=== PATIENT | female | born 1955 | race Caucasian/White ===

== ENCOUNTER → 2018-06-11 12:52 | Outpatient (CLI) | payer OTHER, SELFPAY ==
[2018-06-11 14:36] LABS: BUN 18 mg/dL (7-18); Estimated GFR 56.37 (mL/min/1.73m2)
== END ==
PROVIDERS: PCP Student in an Organized Health Care Education/Training Program; Visit Provider Podiatrist
DX: M79.672 Pain in left foot (principal); R22.42 Localized swelling, mass and lump, left lower limb; Z13.29 Encounter for screening for other suspected endocrine disorder
CPT/HCPCS: 36415; 84520; 82565

== ENCOUNTER → 2018-06-12 01:57 | Outpatient (CLI) | payer OTHER, SELFPAY ==
--- NOTE | 2018-06-12 14:51 | DI.REPORT_ITS ---
SYMPTOMS/DIAGNOSIS: PAIN, SWELLING, LEFT FOREFOOT; NEUROMA, 3RD SPACE; PLANTAR PLATE TEAR, 3RD METATARSOPHALANGEAL JOINT MRI OF THE LEFT FOREFOOT: Noncontrast MRI of the left forefoot was performed. The patient refused intravenous contrast material. Marrow signal is within normal limits. No findings to suggest an occult fracture or avascular necrosis are appreciated. No evidence of a soft tissue mass is appreciated. No focal fluid collection is seen. At the 1st metatarsophalangeal joint, there is fluid seen within the joint space. At the articulation between the head of the 1st metatarsal and the sesamoid on the plantar surface, there is subchondral T2 signal and narrowing of the space, consistent with arthritis. No evidence of a tendon tear is seen. IMPRESSION: 1. No evidence of a soft tissue mass. 2. No evidence of an occult fracture or avascular necrosis. 3. Arthritis involving the head of the 1st metatarsal and the adjacent sesamoid.
== END ==
PROVIDERS: PCP Student in an Organized Health Care Education/Training Program; Visit Provider Podiatrist
DX: M79.672 Pain in left foot (principal); R22.42 Localized swelling, mass and lump, left lower limb; M19.072 Primary osteoarthritis, left ankle and foot
CPT/HCPCS: 73718

== ENCOUNTER 2018-08-03 08:02 | Outpatient (CLI) | payer OTHER, SELFPAY ==
[2018-08-03 10:08] LABS: Cholesterol 278 mg/dL (50-200); HDL Cholesterol 54 mg/dL (40-60); LDL CHOLESTEROL 208 mg/dL (<100); Triglyceride 120 mg/dL (30-150)
[2018-08-06 11:36] LABS: Vitamin D 25 Total 54.3 ng/ml (30-100)
== END 2018-08-03 08:22 ==
PROVIDERS: PCP Student in an Organized Health Care Education/Training Program; Visit Provider Student in an Organized Health Care Education/Training Program
DX: E78.5 Hyperlipidemia, unspecified (principal); M85.80 Other specified disorders of bone density and structure, unspecified site; M84.37 Stress fracture, ankle, foot and toes
CPT/HCPCS: 36415; 80061; 82306; 83721

== ENCOUNTER 2018-09-17 11:09 | Outpatient (CLI) | payer OTHER, SELFPAY ==
--- NOTE | 2018-09-17 11:11 | DI.RAD_ITS ---
SYMPTOM/DIAGNOSIS: NEW SHARP RT HIP PAIN, NOT RESPONDING TO CHIRO, M25.559 RIGHT HIP AND AP PELVIS: Three views. No bone or joint abnormality is identified. The soft tissues are unremarkable. IMPRESSION: Negative right hip.
== END 2018-09-17 11:29 ==
PROVIDERS: PCP Student in an Organized Health Care Education/Training Program; Visit Provider Student in an Organized Health Care Education/Training Program
DX: M25.551 Pain in right hip (principal)
CPT/HCPCS: 73502

== ENCOUNTER 2018-10-26 01:15 | Outpatient (CLI) | payer OTHER, SELFPAY | END 2018-10-26 01:35 | PROVIDERS: PCP Student in an Organized Health Care Education/Training Program; Visit Provider Student in an Organized Health Care Education/Training Program | DX: G43.009 Migraine without aura, not intractable, without status migrainosus (principal) | CPT/HCPCS: 94762 ==

== ENCOUNTER 2019-02-13 07:04 | Outpatient (CLI) | payer OTHER, SELFPAY ==
[2019-02-13 08:18] LABS: Cholesterol 303 mg/dL (50-200); HDL Cholesterol 61 mg/dL (40-60); LDL CHOLESTEROL 221 mg/dL (<100); Triglyceride 81 mg/dL (30-150)
== END 2019-02-13 07:24 ==
PROVIDERS: PCP Student in an Organized Health Care Education/Training Program; Visit Provider Student in an Organized Health Care Education/Training Program
DX: E78.5 Hyperlipidemia, unspecified (principal)
CPT/HCPCS: 36415; 80061; 83721

== ENCOUNTER 2019-03-07 00:38 | Outpatient (CLI) | payer OTHER, SELFPAY ==
--- NOTE | 2019-03-07 09:39 | W.PROCNOTE ---
Date of service: 03/07/19 Time of Service: 09:40 Procedure Note Date of procedure: 03/07/19 Procedure: Right Hip Injection with Fluoroscopic Guidance Surgeon/Proceduralist/Physician: Pedro Martinez Procedure Diagnosis: Right Hip Osteoarthritis Procedure Indications: Tamra has had persistent pain of the RIGHT hip and groin. Noninvasive measures have been tried. To serve as both diagnostic and therapeutic, an injection under fluoroscopy was recommended. I had discussed the risks of the procedure and the patient elected to proceed. Procedure Description: Tamra was greeted in the flouroscopy room. The correct side was identified and the consent was reviewed with the patient and signed. The patient was then placed in the supine position on the fluoroscopy table. The RIGHT hip was then prepped with Chloraprep. The anterolateral injection starting point was identiifed by bony landmarks and fluoroscopy. The skin and soft tissue in the tract of the injection was anesthetized with 1% Lidocaine. A spinal needle was then inserted deep into the hip joint at the level of the lateral femoral neck under fluoroscopic guidance. A small amount of Omnipaque solution was injected to confirm intraarticular placement. Once confirmed, the hip was injected with 6cc of 0.5% Bupivicaine and 80mg of Depo-Medrol. A bandaid was placed on the injection site. The patient tolerated the procedure well and noted improvement in pre-injection pain.
--- NOTE | 2019-03-07 10:45 | DI.RAD_ITS ---
SYMPTOMS/DIAGNOSIS: RIGHT HIP OSTEOARTHRITIS FROM DYSPLASIA, M16.31 RIGHT HIP INJECTION: Fluoroscopy Time: 13.9 sec Under fluoroscopic guidance, Dr. Martinez carried out an injection into the right hip. Please see the procedure report for further information.
[2019-03-07] MEDS: Omnipaque 300 MG/ML 10 ML BTL IJ (14:01)
[2019-03-07] MEDS: Bupivacaine 0.5% Pres-Free 10 ML VIAL IJ (14:02)
[2019-03-07] MEDS: methylPREDNISolone ACETATE 80 MG/ML VIAL IM (14:14)
== END 2019-03-07 00:58 ==
PROVIDERS: PCP Student in an Organized Health Care Education/Training Program; Visit Provider Student in an Organized Health Care Education/Training Program
DX: M16.31 Unilateral osteoarthritis resulting from hip dysplasia, right hip (principal); M25.551 Pain in right hip
CPT/HCPCS: 20610; 77002; J1040

== ENCOUNTER 2019-04-10 00:49 | Outpatient (CLI) | payer OTHER, SELFPAY ==
--- NOTE | 2019-04-10 08:34 | DI.MRI_ITS ---
SYMPTOM/DIAGNOSIS: RT HIP PAIN, TROCHANTERIC BURSITIS, HIP DYSPLASIA, M70,M16.31 RIGHT HIP MRI: MR examination of the hip was performed according to the usual protocol. No abnormality is seen involving the internal soft tissue structures of the pelvis. No bony signal abnormality is seen. Hip joints appear well maintained. There is minimally abnormal signal in attachment of gluteus medius and gluteus shahab on the greater trochanter of the right femur. No gross free fluid is seen. No other significant signal abnormality is seen involving the soft tissues of the hip or pelvis. CONCLUSION: Findings consistent with minimal tendinosis/tendinitis of gluteal attachments on the right femur. No fluid collection is seen.
== END 2019-04-10 01:09 ==
PROVIDERS: PCP Student in an Organized Health Care Education/Training Program; Visit Provider Student in an Organized Health Care Education/Training Program
DX: M16.31 Unilateral osteoarthritis resulting from hip dysplasia, right hip (principal); M70.61 Trochanteric bursitis, right hip; M25.551 Pain in right hip
CPT/HCPCS: 73721

== ENCOUNTER 2019-05-29 14:35 | Outpatient (CLI) | payer OTHER, SELFPAY ==
--- NOTE | 2019-05-29 14:34 | DI.RAD_ITS ---
SYMPTOMS/DIAGNOSIS: RIGHT HIP PAIN PELVIS AND RIGHT HIP: Comparison is made with September, images of the SI joints. There is no significant leg length discrepancy. Degenerative changes are seen in the lower lumbar spine. IMPRESSION: Stable mild degenerative changes of both hips.
== END 2019-05-29 14:55 ==
PROVIDERS: PCP Student in an Organized Health Care Education/Training Program; Visit Provider Physician Assistant
DX: M25.551 Pain in right hip (principal)
CPT/HCPCS: 73502

== ENCOUNTER 2019-06-18 15:14 | Outpatient (REF) | payer OTHER, SELFPAY ==
--- NOTE | 2019-06-18 15:00 | SKI_PTH ---
PATIENT: Tamra Plata LOC: [facility] U#:[id number] AGE/SX: 64/F ROOM: RE06/18/[address]: Tee Proctor MD : [id number] BED: DIS: 06/18/2019 SPEC #: [id number] RECD: 06/19/19 12:38 STATUS: BEAR REMedardo #: [id number] SENA: 06/18/19 15:[address]: Tee Proctor DEPT: Surgical Specimen RECD BY: Amira Hilliard ENTERED: 06/19/19 12:40 SP TYPE: TOY WEINSTEIN DR: Alessandra Estevez DO Tissues: 1 - SKIN BIOPSY(SHAVE/PUNCH) Procedures: SKIN LEVEL 4 Comments: [id number]
== END 2019-06-18 15:34 ==
LOC: LBN 15:14
PROVIDERS: PCP Student in an Organized Health Care Education/Training Program; Visit Provider Obstetrics & Gynecology
DX: B07.9 Viral wart, unspecified (principal)
CPT/HCPCS: 88305

== ENCOUNTER 2019-07-09 14:28 | Outpatient (CLI) | payer OTHER, SELFPAY ==
--- NOTE | 2019-07-09 13:24 | HPE_ITS ---
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 Educated patient that if they develop any lesions, redness or skin breakdown to contact office as skin concerns would be a reason to cancel surgery. Patient gives verbal understanding. Educated patient on surgery covering surgical technique via models, recovery process, benefits and risks including but not limited to risk of infection, blood clot, fracture, numbness/tingling, leg length discrepancy, damage to soft tissue/blood vessels/nerves in detail. After discussion patient gives verbal understanding of risks and elects to proceed with scheduling surgery. Patient had opportunity to have questions answered to their satisfaction. They will contact office if issues arise. Patient will co ntinue to be scheduled for right total hip replacement, IT band lengthening, trochanter bursa debridement and possible abductor tendon repair with Dr. Martinez. History of Present Illness Narrative: Ms. Plata is a 64-year-old female who presents to clinic for pre- operative appointment for right posterior SYDNIE, ITB lengthening and abductor tendon repair. She has been seen for complaints of anterior groin and lateral hip pain. She has received injection under fluoroscopy as well as two trochanteric bursa injections. States all injections helped slightly but she continues to have both locations of discomfort that affect daily life. She continues to describe anterior groin pain. Pain continues to be aggravated with prolonged walking, ascending stairs and slightly when moving from a standing position. Reports anterior groin pain is more intermittent than it had been prior to her injection but has been occurring at rest when in a seated position. In addition she continues to have lateral based hip pain which is described as a sharp pain that travels down the length of her right leg to the lateral aspect of her knee. States pain is a constant sensation that is aggravated with direct pressure such as laying on the right side at night and with ascending motions i.e. inclines. She continues to have difficulty at night if she rolls onto her side. She tried two trochanteric bursa injection which provided short-term relief; states last injection in April provided partial relief for a few days. She continues to take ibuprofen as needed - estimates before bed approximately once weekly. Previously had tried PT and she continues to do recommended exercises 3 times weekly. She continues to avoid stairs due to discomfort. Patient denies any recent injuries or falls. She denies any symptoms of numbness or tingling. Pertinent Surgical Information Reports years of PVC and anxiety in 1995. Reports continues to have intermittent palpitations at moments of high stress. States she only saw cardiology one time around 1995 when she was just starting to have a work-up for her symptoms. States she has continued to have anxiety and will occasionally have palpitations that resolve with improved mental state. Denies any chest pain or additional cardiac symptoms. Has concerns regarding post-operative pain management. States following shoulder surgery experienced pain and was unable to tolerate prescription medication. She does have allergy to celebrix (abdominal rash) as well as an adverse reaction to meloxicam (nausea). Denies past medical history of: Hypertension, stroke, cardiac issues, angina, asthma, COPD, sleep apnea, renal issues, liver issues, hepatitis, gastrointestinal ulcers, bleeding disorders, seizures, diabetes, autoimmune disorders, thyroid issues Denies prior complications from surgery or anesthesia. Review of Systems Constitutional Constitutional: Denies fever(s), Denies frequent falls and Denies headache(s) Eyes Eyes: Reports change in vision (reports two migraines with aura recently; Left eye vision change) ENT Ears, Nose, Mouth, and Throat: Denies dizziness, Denies ear discharge, Denies headache(s), Denies epistaxis, Denies nasal discharge and Denies sore throat Cardiovascular Cardiovascular: Denies chest pain, Denies rapid heart rate, Denies irregular heart rhythm, Denies palpitations, Denies dyspnea, Denies dyspnea on exertion, Denies orthopnea, Denies paroxysmal nocturnal dyspnea and Denies slow heart rate Respiratory Respiratory: Denies cough, Denies dyspnea, Denies dyspnea on exertion and Denies wheezing Gastrointestinal Gastrointestinal: Denies abdominal pain, Denies melena, Denies hematochezia, Denies constipation, Denies diarrhea, Denies nausea and Denies vomiting Genitourinary Genitourinary: Denies hematuria, Denies dysuria and Denies urinary urgency Musculoskeletal Musculoskeletal: Reports as per HPI, Denies numbness and Denies tingling Neurologic Neurologic: Denies dizziness, Denies frequent falls, Denies headache(s), Denies numbness and Denies tingling Psychiatric Psychiatric: Reports anxiety and Denies depression Endocrine Endocrine: Denies palpitations Allergic/Immunologic Allergic/Immunologic: Denies wheezing PFSH Family History (Updated 07/09/19 @ 14:59 by Raegan Ruiz RN) Mother Essential hypertension Osteoporosis Atrial fibrillation Hyperlipidemia GERD (gastroesophageal reflux disease) History of postoperative nausea and vomiting Father , Lung CA at age 80. Substance abuse EtOH Essential hypertension Heart disease CABG Hyperlipidemia Neoplasm Lung CA (asbestos exposure) Sister Essential hypertension Mental disorder Depression/anxiety Daughter UC (ulcerative colitis) Social History Smoking/Tobacco Use Status: Never Alcohol Intake: current Alcohol Intake frequency: a few times a month Drug use: Never Substance use type: does not use Adopted: No Household members: spouse and children Housing: house current occupation: [employer] What type of physical activity do you participate in: walking Duration: 15-30 minutes/day Frequency: 3-4 times per week Seatbelt use: always Helmet use: Yes Working smoke detector in home: Yes Fire extinguisher in home: Yes Carbon monox detector in home: Yes Firearms in home: Yes Do you feel safe at home: Yes Victim of physical abuse: No (in the past) Victim of emotional abuse: No (in past) Victim of sexual abuse: No Would you like helpful sources: No (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 ) Meds Home Medications and Allergies Home Medications Medication Instructions Recorded Confirmed Type Driss-6-Mag 1 tab PO DAILY 05/07/13 07/09/19 History fluticasone propionate [Flonase 2 spray NS DAILY 05/02/18 07/09/19 History Allergy Relief] lansoprazole 30 mg capsule,delayed 30 mg PO DAILY PRN cap 08/08/18 07/09/19 History release cetirizine 10 mg tablet 10 mg PO DAILY 09/04/18 07/09/19 History cod liver oil 1 cap PO DAILY 09/04/18 07/09/19 History alprazolam 0.5 mg tablet 0.5 mg PO ONCE PRN #2 tab 04/03/19 07/09/19 Rx estradiol 10 mcg vaginal tablet 10 mcg VG HS TWICE WEEKLY #24 tab 07/08/19 07/09/19 Rx ascorbic acid (vitamin C) [Vitamin 1,000 mg PO DAILY 07/09/19 07/09/19 History C] ibuprofen 600 mg PO PRN PRN 07/09/19 07/09/19 History multivitamin 1 tab PO DAILY 07/09/19 07/09/19 History Allergies Allergy/AdvReac Type Severity Reaction Status Date / Time celecoxib [From Celebrex] Allergy Intermediate rash Verified 07/09/19 13:49 meloxicam AdvReac Intermediate nausea Verified 07/09/19 13:49 tegaderm AdvReac Intermediate Skin Rash Uncoded 07/09/19 14:52 Exam Const General: cooperative and no acute distress [facility] Head: normal to inspection, normocephalic and atraumatic Ears: external ears normal General nose exam: external nose normal and no nasal discharge Face and sinus: face symmetric Mouth: oral mucosae normal, lip normal, tongue normal and moist mucous membranes Teeth and gingiva: dentition normal Throat: posterior oropharynx normal Eyes General: appearance normal, both eyes and all related structures Pupils: PERRL EOM: EOM intact bilaterally Neck Neck: trachea midline Carotids: normal carotid upstroke Lymphatic: no lymphadenopathy noted Resp Effort & Inspection: normal respiratory effort and able to speak in complete sentences Auscultation: clear to auscultation bilaterally, no rales, no rhonchi and no wheezes Cardio Heart Sounds: S1 normal, S2 normal and no murmurs Pulses: radial pulses present bilaterally GI Palpation: soft, no hepatosplenomegaly and nontender Auscultation: normal bowel sounds Skin General skin exam: no rashes or lesions noted
== END 2019-07-09 14:48 ==
PROVIDERS: PCP Student in an Organized Health Care Education/Training Program; Visit Provider Student in an Organized Health Care Education/Training Program
DX: M70.61 Trochanteric bursitis, right hip (principal); M16.31 Unilateral osteoarthritis resulting from hip dysplasia, right hip; Z01.818 Encounter for other preprocedural examination
CPT/HCPCS: NC

== ENCOUNTER 2019-07-09 15:23 | Outpatient (CLI) | payer OTHER, SELFPAY ==
[2019-07-09 16:43] LABS: HCT 40.8 % (36.0-46.0); HGB 13.5 g/dL (12.0-15.5); Mean Corp. HGB Concentration 33.1 g/dL (32.0-36.0); Mean Corpuscular Hemoglobin 29.6 pg (27.0-33.0); Mean Corpuscular Volume 89.5 fL (80-95); Mean Platelet Volume 10.8 fL (8.0-11.0); Platelet Count 315 x1000/uL (130-400); RBC 4.56 m/cumm (4.00-5.20); RBC Distribution Width 12.8 % (11.7-14.6); White Blood Cell Count 6.97 k/cumm (4.4-10.8)
[2019-07-09 16:50] LABS: BUN 12 mg/dL (7-18); CREATININE 0.82 mg/dL (0.55-1.02); Calcium 9.3 mg/dL (8.5-10.1); Chloride 105 mmol/L (98-107); Glucose 93 mg/dL (70-100); Sodium 142 mmol/L (136-145)
== END 2019-07-09 15:43 ==
PROVIDERS: PCP Student in an Organized Health Care Education/Training Program; Visit Provider Student in an Organized Health Care Education/Training Program
DX: M25.551 Pain in right hip (principal); M70.61 Trochanteric bursitis, right hip; M16.31 Unilateral osteoarthritis resulting from hip dysplasia, right hip; Z01.812 Encounter for preprocedural laboratory examination; Z01.818 Encounter for other preprocedural examination
CPT/HCPCS: 36415; 80048; 85027; 86850; 86900; 86901

== ENCOUNTER 2019-07-17 09:55 | Inpatient (IN) | payer OTHER, SELFPAY ==
[2019-07-17] VITALS (9 sets, daily range): BP systolic 99–137; BP diastolic 53–82; PULSE 55–77; RESP 11–18; TEMP 36.3–37.2; O2SAT 98–100
[2019-07-17] MEDS: Lactated Ringers 1,000 ML 80 ML IV ×2 (11:12→19:50)
[2019-07-17] MEDS: Acetaminophen 500 MG TAB 1000 MG PO ×2 (11:12→19:49)
[2019-07-17] MEDS: FAMOTIDINE 20 MG/50 ML BAG 200 MG IVPB (12:27)
[2019-07-17] MEDS: Sodium Citrate 30 ML CUP PO (12:40)
[2019-07-17] MEDS: ceFAZolin 2 GM/50 ML BAG IVPB (12:42)
--- NOTE | 2019-07-17 14:12 | DI.RAD_ITS ---
EXAM: XR PELVIS AP INDICATION: TROCHANTERIC BURSITIS RIGHT HIP. COMPARISON: XR HIP RT COMPLETE AND AP PELVIS from 05/29/2019 TECHNIQUE: 2D digital imaging was performed. FINDINGS: Single intraoperative view of the pelvis was performed. The image shows the patient is undergoing a right total hip replacement. Please refer to the procedure report for complete details. IMPRESSION:
[2019-07-17] MEDS: Bupivacaine 0.25% Pres-Free 30 ML VIAL (14:37)
[2019-07-17] MEDS: Ketorolac 30 MG/ML VIAL (14:37)
[2019-07-17] MEDS: Normal Saline 50 ML (14:37)
--- NOTE | 2019-07-17 16:22 | DI.RAD_ITS ---
EXAM: XR PELVIS AP INDICATION: s/p R SYDNIE. COMPARISON: XR PELVIS AP from 07/17/2019 TECHNIQUE: 2D digital imaging was performed. FINDINGS: Single AP view was obtained and shows right hip prosthesis in position. Mild degenerative changes of the left hip noted. IMPRESSION:
--- NOTE | 2019-07-17 16:57 | DI.VRAD_ITS ---
PROCEDURE INFORMATION: Exam: XR Pelvis Exam date and time: 07/17/2019 4:19 PM Clinical history: 64 years old, female; Condition or disease; Joint replacement status; Right; Patient HX: S/P R jonathan TECHNIQUE: Imaging protocol: XR pelvis. Views: 1 or 2 view. COMPARISON: CR XR PELVIS AP 07/17/2019 2:14 PM FINDINGS: Bones/joints: Right hip arthroplasty with components in normal alignment.. No acute fracture or dislocation. Soft tissues: Unremarkable. IMPRESSION: No acute findings. Dictated and Authenticated by: Dedra Prince MD. Ordering:CATHY Vasquez MD
[2019-07-17] MEDS: ceFAZolin 1 GM/50 ML BAG IVPB (18:31)
[2019-07-17] MEDS: oxyCODONE 5 MG TAB PO (18:32)
[2019-07-17] MEDS: Aspirin E.C. 81 MG TABEC PO (19:49)
[2019-07-17] MEDS: Ketorolac 15 MG/ML VIAL IVP (19:50)
[2019-07-17] MEDS: Normal Saline Flush 10 ML SYR IV (19:50)
[2019-07-18 00:07] VITALS: BP 95/61; PULSE 66; RESP 18; TEMP 37; O2SAT 99
[2019-07-18] MEDS: ceFAZolin 1 GM/50 ML BAG IVPB ×2 (02:48→10:43)
[2019-07-18] MEDS: Ketorolac 15 MG/ML VIAL IVP ×3 (02:49→13:06)
[2019-07-18] MEDS: Normal Saline Flush 10 ML SYR IV ×3 (02:49→13:06)
[2019-07-18 03:00] VITALS: BP 112/60; PULSE 75; RESP 18; TEMP 37; O2SAT 95
[2019-07-18] MEDS: Lactated Ringers 1,000 ML 80 ML IV (05:38)
[2019-07-18 07:05] LABS: HCT 35.4 % (36.0-46.0); HGB 11.8 g/dL (12.0-15.5); Mean Corp. HGB Concentration 33.3 g/dL (32.0-36.0); Mean Corpuscular Hemoglobin 30.1 pg (27.0-33.0); Mean Corpuscular Volume 90.3 fL (80-95); Mean Platelet Volume 10.1 fL (8.0-11.0); Platelet Count 240 x1000/uL (130-400); RBC 3.92 m/cumm (4.00-5.20); RBC Distribution Width 12.7 % (11.7-14.6); White Blood Cell Count 8.22 k/cumm (4.4-10.8)
[2019-07-18 07:15] VITALS: BP 115/75; PULSE 82; RESP 18; TEMP 37.2; O2SAT 98
[2019-07-18 07:29] LABS: Anion Gap 6.4 mmol/L (3-11); BUN 11 mg/dL (7-18); CO2 30.6 mmol/L (21.0-32.0); CREATININE 0.69 mg/dL (0.55-1.02); Calcium 8.3 mg/dL (8.5-10.1); Chloride 106 mmol/L (98-107); Glucose 109 mg/dL (70-100); Potassium 3.7 mmol/L (3.5-5.1); Sodium 143 mmol/L (136-145)
[2019-07-18] MEDS: Fluticasone NASAL SPRAY 16 GM BTL NS (09:06)
[2019-07-18] MEDS: Multivitamin TAB 1 TAB PO (09:07)
[2019-07-18] MEDS: Cetirizine 10 MG TAB PO (09:07)
[2019-07-18] MEDS: Lansoprazole 30 MG CAPCR PO (09:07)
[2019-07-18] MEDS: Dexamethasone 4 MG TAB PO (09:07)
[2019-07-18] MEDS: Ascorbic Acid 500 MG TAB 1000 MG PO (09:07)
[2019-07-18] MEDS: Acetaminophen 500 MG TAB 1000 MG PO ×2 (09:08→13:05)
[2019-07-18] MEDS: Aspirin E.C. 81 MG TABEC PO (09:08)
--- NOTE | 2019-07-18 11:13 | IN_ITS ---
Date of service: 07/18/19 Time of Service: 09:10 PT Notes Inpatient Physical Therapy Evaluation Date: 07/18/2019 Referring Doctor: Pedro Martinez, patient will highly benefit from use of straight cane in order to increase mobility, increase stability, maximize activity tolerance, and reduce overall fall risk at discharge destination. T PT Orders: PT CONSULT: S/P R SYDNIE and IT Band Lengthening Precautions: Fall. Standard. Patient Profile/Admitting Diagnosis: Patient is a 64-year-old female trochanteric bursitis of right hip and osteoarthritis resulting from right hip dysplasia s/p R posterior approach SYDNIE, trochanteric bursa debridement, and iliotibial band lengthening on postoperative day 1. PMHX: Osteopenia GERD Hyperlipidemia Anxiety and depression Migraine headache Cervical radiculitis Agoraphobia with panic attacks Social History/Home Situation: Patient lives in a one-story home that has four steps to enter. She lives with her and grown children. 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 Equipment Owned/DME: none. Subjective: Patient reports mild discomfort (4/10) and says she is ready to be up and moving because she needs to use the restroom. She is agreeable to PT, and complains of dizziness only during the transition to sitting. She does have some mild numbness and tingling in her R foot. Objective: General Observation: Patient is seen laying supine with HOB elevated with bilateral LEIA stockings and antithromboembolic devices. She has an IV in the R UE that is disconnected. Mental Status: Alert and oriented x 4 as to person, place, time, and purpose Pain: 4/10 ROM: Right Lower Extremity: Hip flexion tested up to 90 degrees due to hip precautions. Hip abduction WFL. Knee flexion WFL. Knee extension -15 degrees. Ankle dorsiflexion allows up to 10 degrees during gait activity. Ankle plantarflexion allows about 10 degrees during walking. Left Lower Extremity: Hip flexion WFL. Hip abduction WFL. Knee flexion WFL. Ankle dorsiflexion WFL. Ankle plantarflexion WFL. Strength: Right Lower Extremity: Hip flexors 3-/5. Hip abductors 5/5. Knee flexors 5/5. Knee extensors 3-/5. Ankle dorsiflexors 3-/5. Ankle plantarflexors 3-/5. Left Lower Extremity:Hip flexors 4/5. Hip abductors 5/5. Knee flexors 5/5. Knee extensors 5/5. Ankle dorsiflexors 5/5. Ankle plantarflexors 5/5. Bed Mobility/Transfers: Rolling I Supine to sit I Sit to supine I Sit to stand Supervision Stand to sit Supervision Bed to chair Supervision Chair to bed Supervision Gait: Patient ambulated 15? to restroom with CGA and FWW. She then ambulated 12? to commode with CGA and FWW. Patient was then able to ambulate using reciprocal gait with FWW and supervision for 50? with wheelchair follow. She ascended and descended three 4-inch steps, and two 6-inch steps with supervision and bilateral rail support, twice using step-to pattern. She then ambulated 50? back to her room with FWW and supervision. Balance: Static Sitting: Normal Dynamic Sitting: Normal Static Standing: Fair Dynamic Standing: Fair Special Tests: Mobility Limitations Standardized Measure [facility] AM-PAC 6 clicks Basic Mobility Inpatient Short Form: Raw Score: 21 CMS Score: 33% Informed Consent/Education: Patient instructed in purpose of PT consult and plan of care. Assessment: Patient is a 64-year-old female s/p R SYDNIE, Ilitiobial band lengthening and bursectomy. Once out of bed, her function progressed exponentially and she is able to ambulate with solely supervision. Her pain is well managed and she is a relatively active individual who is motivated to get back to work in six weeks. She lives with her and grown children in a one story home and she feels confident she will be able to get around her home. Her prognosis is good. Patient presents with clinical signs and symptoms consistent with current/admitting diagnoses that have resulted to mobility limitations, gait instability, generalized weakness, and impairment of motor control as demonstrated by the following impairment level findings: 1. Decreased strength to R LE major muscle groups 2. Impaired sitting/standing balance 3. Impaired activity tolerance 4. Limitation of joint range of motion in hip flexion (due to precautions), and knee extension. Impairments are contributing to the following functional limitations: 1. Inability to safely ambulate without assistive device and physical assistance 2. Increase completion time for mobility ADL performance 3. Increased fall risk 4. Inability to negotiate steps alone safely Patient is assessed as a 98029 moderate complexity based on the following: History: Patient is a 64-year-old female trochanteric bursitis of right hip and osteoarthritis resulting from right hip dysplasia s/p R posterior approach SYDNIE, trochanteric bursa debridement, and iliotibial band lengthening on postoperative day 1. Examination: Demonstrable impairment in strength, balance, and range of motion with underlying impairments and functional limitations as documented above Presentation: Evolving Decision Makin Moderate complexity Goals: Goals X1 week 1. Bed-Chair independent 2. Chair-Bed independent 3. Independent gait on level surface with use of least restrictive device for at least 300 feet without report of pain nor dyspnea 4. Independent stair negotiation while holding onto bilateral rails for at least 10 steps without report of pain nor dyspnea 5. Independent with home exercise program 6.. Good static and dynamic standing balance/tolerance Plan of Care/Treatment Plan: 1-2x/day, 7 days/week x 1 week. Plan of care has been reviewed with the FUNERAL HOME MANAGER providing the service under Physical Therapy direction. Initiate Physical Therapy intervention for strengthening, bed mobility, transfers, gait, stairs, balance training, use of assistive device. DISCHARGE RECOMMENDATIONS: Patient is to be discharged to home after all of the above goals are met and she is medically stable. May benefit from skilled physical therapy services according to orthopedic surgeon's timeline recommendations. Patient will be educated and trained on home exercise program per TKA exercise protocol in preparation for outpatient physical therapy services. TREATMENT CODE/TIME: 29182 x 20 minutes, [id number] x 15 minutes beginning at 9:10 PM. Thank you very much for this referral. Tay Frank [facility] With supervision of: Desire Dooley PT, DPT, CLT [facility], [facility]
--- NOTE | 2019-07-18 11:29 | INITIAL_ITS ---
Care Management Initial Assess REASON FOR HOSPITALIZATION:: trochanteric bursitis R hip and OA resulting from R hip dysplasia, now s/p R SYDNIE and ITB lengthening and abductor tendon repair. PAST MEDICAL HISTORY/PAST SURGICAL HISTORY:: Medical: anxiety/depression, heart palpitations when under stress, osteopenia, GERD, hyperlipidemia, migraine headache, cervical radiculitis, agorophobia with panic attacks. Surgical: none PREVIOUS FUNCTIONAL STATUS/SOCIAL/FAMILY SUPPORTS:: Tamra is 64 yo woman who lives with her Fan and children in their home in [place]. 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 She is usually active and independent. CURRENT FUNCTIONAL STATUS:: She is sitting up in chair when CM enters. Easily engages in discussion re plans. Looks forward to d/c later today. ADVANCE DIRECTIVES:: Document on file at [facility]. Christina Chavira is agent and Jose and Anjali are alternates. Has patient been provided with information about the portal?: Yes Did the patient sign up for the portal?: No (already done) CODE STATUS:: Full Code INSURANCE COVERAGE / FINANCIAL ISSUES:: [employer] CURRENT HOME/COMMUNITY SERVICES/EQUIPMENT:: No current services. Has access to shower chair, grab bars and raised toilet seat for home use. PRIMARY CARE PHYSICIAN:: Alessandra Sinclair MD POTENTIAL DISCHARGE NEEDS:: Needs walker for home use. Discussion re DME options and she requested [facility], so walker was issued from Jean to her. Will need follow-up with Dr Martinez as directed. She pland to discuss OP PT with him at 2 week visit, and anticipates going to OP PT with Leonid Thomas. PATIENT/FAMILY EDUCATION NEEDS:: review d/c instructions re meds and activity levels. Discuss Ask me Now ANTICIPATED BARRIERS TO DISCHARGE:: none identified TRANSPORTATION:: via car with or other family member. PLAN:: d/c home as per . Will follow-up with Dr Martinez as directed, and further discuss OP PT with him.
[2019-07-18 13:05] VITALS: TEMP 38
--- NOTE | 2019-07-18 13:12 | DSE_ITS ---
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 It was tolerated well without any notable medical, surgical, or anesthetic complications. Mobilization began postoperatively. The light catheter was removed and voiding spontaneously. Vitals were stable. Physical therapy worked with the patient and was cleared for discharge home. No acute medical issues. Home Meds and New Rx's Prescriptions: New aspirin 81 mg tablet,delayed release (DR/EC) 81 mg PO BID Qty: 60 RF: 0 acetaminophen 500 mg tablet 1,000 mg PO Q8H PRN (Reason: pain) Qty: 90 RF: 3 ibuprofen 600 mg tablet 600 mg PO TID PRNQty: 90 RF: 3 oxycodone 5 mg tablet 5 mg PO Q4H Qty: 18 RF: 0 Narcan 4 mg/actuation spray,non-aerosol 4 mg KO Q2M PRN (Reason: opioid overdose) Qty: 2 RF: 0 Continued cod liver oil capsule 1 cap PO DAILY RF: 0 cetirizine [Zyrtec] 10 mg tablet 10 mg PO DAILY RF: 0 multivitamin Tablet 1 tab PO DAILY RF: 0 ramon-6-mag tablet 1 tab PO DAILY RF: 0 fluticasone propionate [Flonase Allergy Relief] 9.9 ML spray,suspension 2 spray NS DAILY RF: 0 estradiol [Vagifem] 10 mcg tablet 10 mcg VG HS TWICE WEEKLY Qty: 24 RF: 4 ascorbic acid (vitamin C) [Vitamin C] 1,000 mg Tablet Extended Release 1,000 mg PO DAILY RF: 0 alprazolam [Xanax] 0.5 mg tablet 0.5 mg PO ONCE PRN (Reason: claustrophobia) RF: 0 lansoprazole [Prevacid] 30 mg capsule,delayed release(DR/EC) 30 mg PO DAILY PRN (Reason: dypepsia) RF: 0 Discontinued ibuprofen 600 mg Tablet 600 mg PO PRN PRNRF: 0 Discharge Instructions Additional Instructions: Dr. Martinez?s Total Hip Discharge Instructions Activity: The most important activity is to walk. You should try to take short walks a few times a day. You have no restrictions on movement or positioning, but you should keep your knees wider than your hips and keep a pillow between your knees at night. You will find some stiffness and weakness with hip flexion (lifting your knee). Do not try to strengthen this too early, continue to practice walking and stairs and this will come. - Outpatient physical therapy can be helpful to help return you to a normal gait and improve your flexibility and strength. This can start around 2 weeks. For some patients, it?s not necessary. - You should wear the LEIA hose on both legs for 2 weeks. Dressing: Keep the surgical dressing in place for at least one week. After the first week it may be removed and replace with light gauze and tape or nothing. It may get wet after 3 days but avoid soaking the dressing. If it gets wet, just lightly pat dry. Medications: - You should take Tylenol and an anti-inflammatory Ibuprofen as your primary pain control medications - You have been prescribed a stronger pain medication Oxycodone for breakthrough pain, take as needed as prescribed. - You will be taking Aspirin 81mg twice a day for DVT prevention unless instructed otherwise. - If you have constipation you should take Colace or Miralax (both [id number] ter). It takes most people 3-4 days to have a bowel movement. Follow-up: 2 weeks Referrals: Pedro Martinez MD [ [facility] STAFF PHYSICIAN] - Activity:: Activity as Tolerated Equipment/Supplies:: Walker Diet:: As Tolerated Discharge Orders Discharge Orders: Discharge Order (Routine); Ordered 07/18/19 Ordered By: Pedro Martinez DS: Summary Status at Discharge Functional status at discharge: independent ambulation Overall status at discharge: patient is progressing back to baseline Mental Status: mental status grossly normal Speech and Movement: speech and movement normal Mood: congruent mood Affect: normal affect Exam Psych Mental Status: mental status grossly normal Speech and Movement: speech and movement normal Mood: congruent mood Affect: normal affect DS: Data Vitals/I&O Vitals and I&O: Vital Signs Temperature 38 C H 07/18/19 13:05 Temperature Source Tympanic 07/18/19 07:15 Pulse 82 07/18/19 07:15 Pulse Rhythm Regular 07/18/19 02:50 Respiratory Rate 18 07/18/19 07:15 Respiratory Effort 07/18/19 02:50 Respiratory Depth Normal 07/18/19 02:50 Respiratory Pattern Normal 07/18/19 02:50 Blood Pressure 115/75 07/18/19 07:15 Pulse Oximetry 98 07/18/19 07:15 Oxygen Delivery Method Room Air 07/18/19 07:15 Oxygen Flow Rate 0 07/18/19 07:15 Pain Level 0 07/18/19 13:06 Intake & Output 07/17/19 07/18/19 07/18/19 23:59 11:59 23:59 Intake Total 1240 / 1240 854 / 854 Output Total 1900 / 1900 1550 / 1550 Balance -660 / -660 -696 / -696 Intake: IV 1240 / 1240 854 / 854 Output: Urine 1300 / 1300 1550 / 1550 Estimated Blood Loss 600 / 600 Other: Urine Color Yellow Yellow Urine Appearance Clear Clear Urine Odor None Comment SLIGHT BURNING WITH URINATION, KASSANDRA CARCAMO DC'D Emesis Description None Voiding Methods Bedside Commode Data Completed and Pending Labs on day of discharge: Labs from last 24 hours 07/18/19 07/18/19 06:48 06:48 WBC 8.22 RBC 3.92 L Hgb 11.8 L Hct 35.4 L MCV 90.3 MCH 30.1 MCHC 33.3 RDW 12.7 Plt Count 240 MPV 10.1 Sodium 143 Potassium 3.7 Chloride 106 Carbon Dioxide 30.6 Anion Gap 6.4 BUN 11 Creatinine 0.69 Estimated GFR/1.73 m2 >= 60.00 Glucose 109 H Calcium 8.3 L PFSH Family History (Updated 07/09/19 @ 14:59 by Raegan Ruiz RN) Mother Essential hypertension Osteoporosis Atrial fibrillation Hyperlipidemia GERD (gastroesophageal reflux disease) History of postoperative nausea and vomiting Father , Lung CA at age 80. Substance abuse EtOH Essential hypertension Heart disease CABG Hyperlipidemia Neoplasm Lung CA (asbestos exposure) Sister Essential hypertension Mental disorder Depression/anxiety Daughter UC (ulcerative colitis) Social History Smoking/Tobacco Use Status: Never Alcohol Intake: current Alcohol Intake frequency: a few times a month Drug use: Never Substance use type: does not use Adopted: No Household members: spouse and children Housing: house current occupation: [employer] What type of physical activity do you participate in: walking Duration: 15-30 minutes/day Frequency: 3-4 times per week Seatbelt use: always Helmet use: Yes Working smoke detector in home: Yes Fire extinguisher in home: Yes Carbon monox detector in home: Yes Firearms in home: Yes Do you feel safe at home: Yes Victim of physical abuse: No (in the past) Victim of emotional abuse: No (in past) Victim of sexual abuse: No Would you like helpful sources: No (she has seen well logging operator mud analysis in the past )
--- NOTE | 2019-07-18 14:07 | ROE_ITS ---
JULY 17, 2019 PREOPERATIVE DIAGNOSIS: Right hip arthritis, right recalcitrant trochanteric bursitis, right abduct or tendinitis. POSTOPERATIVE DIAGNOSIS: Same. OPERATION: Right posterior hip replacement, right complete trochanteric bursectomy with iliotibial band lengthening. MANUFACTURING TECH: Enid Lopez PA-C ANESTHESIA: Spinal ESTIMATED BLOOD LOSS: 600 cc. FINDINGS: There was a area on the superior femoral head with complete loss of cartilage. This corre sponded to the edge of the acetabulum. The abductors did not have any tearing that was appreciated, however, there was notable tendinitis as seen by thinning of the tendons as they reached the trochant er. There was no tendon edge to repair. There was a thickened bursa which was resected in whole. T oanh iliotibial band was lengthened in a Z-lengthening type procedure. PROCEDURE: Tamra was greeted in the preoperative holding area. Identity was confirmed with the c orrect side identified and marked. The consent was reviewed with the patient and signed. History an d physical exam was updated. Tamra was taken back to the Operating Room. A spinal anesthetic was administered. After successfu l administration of the spinal she was then given some light sedation and positioned onto the left la teral decubitus position. All bony prominences were well padded. An axillary roll was placed under neath the left axilla. The down leg, left leg, was padded with a pillow underneath as well as a pill ow between the two knees. She was secured to the table using posts to keep her in the side lying pos ition. We ensured that her pelvis was level. The left leg was then prepped with ChloraPrep and draped in a standard fashion. Once the drapes were on a second prep with ChloraPrep was performed followed by an Iodine impregnated skin drape. Prophylactic antibiotics in the form Cefazolin were given. A gram of Tranexamic acid administered pr ior to incision. A time out was performed for safe surgery. A 12 cm. incision overlying the tip of the greater trochanter and extending towards the posterior papo ac spine was performed. This was taken up to the level of the skin. There was a significant amount of loose fat in this area. This was dissected down to the level of the greater trochanter and the il iotibial band. These tissues were then elevated off of the iliotibial band and the gluteus fascia to expose the anatomy. The iliotibial band and the gluteus fascia was then incised with a knife and ex tended with a Mora scissor in either direction. This exposed the trochanteric bursa which had signif icant signs of inflammatory disease. A Charnley retractor was placed deep underneath the fascial lay er and the bursa was resected in whole. This was done with a rongeur and a Bovie. Once the bursa wa s removed the abductor tendons were inspected and they did show some thinning at their insertion to t he tuberosity. The lining of the tendons was inspected fully and did not show any signs of complete defect nor was there a stump of tendon appreciated. After this debridement was performed we then pr oceeded with the hip replacement. A release of the short external rotator was performed off the posterior aspect of the greater trochan ter and curved anteriorly, resecting off the conjoined tendon and the piriformis tendon but protectin g the gluteus minimus tendon, elevating it off the capsule. The capsule was incised down to the leve l of the labrum and acetabulum. Once this was performed the leg was then brought into some flexion a nd internal rotation and the hip was dislocated. Excess capsule was removed from the proximal aspect of the hip. A neck cut was drawn on the neck in line with what we had templated. Using an oscilla ting saw this was performed without difficulty and the had was removed. The head was measured, a siz e 44 millimeter. We then turned to the acetabulum. Retractors were placed over the anterior and posterior pichardo and t he labrum was resected. There was a large amount of labrum seen anteriorly and superiorly. The cont ents of the cotyloid fossa were resected with Bovie electrocautery. Starting with a 45 millimeter re amer I then reamed it to a 49 millimeter reamer focusing to get down to the true floor. There was no alma delia to be significant under coverage of the acetabular component. It seemed to fit well with her nor mal anatomy, in respect to both anteversion and abduction. The cup was then impacted into place. It was noted to be contacting quite well superiorly but there was a slight space on the deep central po rtion of the cup, maybe 1 millimeter. However, the cup was extremely stable and this was left in mauro ce. A 52 millimeter Depuy Sopchoppy cup was inserted. This was then followed by the 50 x 32 millimeter li ner. A portion of the periarticular cocktail was injected around the acetabulum. This cocktail cons isted of 20 cc. of Exparel, 50 cc. of 0.25% Bupivacaine, 30 mg. of Ketorolac and 50 cc. of normal s nikky for expansion. We then turned attention to the femur. The femur was brought out of the wound and the lateral neck r emnant was removed. A box osteotome was utilized to start the femoral broaching, aiming for 20 degr ees of anteversion. Broaching was worked lateral and succeeded up to a size 11. I did sink this bel ow by neck cut level, expecting that I was somewhat long based on the distance from the tip of the gr eater trochanter. This was planed down and noted to have good stability with the broach handle. A s tandard neck with a +1.0 head was then inserted. This was able to be reduced. The leg lengths appea red to be equal. However, these seemed to be just a slight amount of instability with going into fle xion and adduction. At about 30 degrees of internal rotation with the knee flexed and adducted past the midline the hip would dislocate superiorly. It was seeming that it was escaping superiorly and t herefore an intraoperative x-ray was performed. The x-ray showed that the acetabular component was vertical although it matched her normal anatomy. The femoral component was in a good position. Therefore, I removed the femoral component and used a bone tamp to increase the abduction of the acet abular component. The component was well fixed and took some effort to move it into the abduction. It was then re-impacted back into the acetabulum. The hip was then re-trialed with a size 11 +5. This seemed to give adequate tension and the hip was extremely stable up to 60 degrees of internal rotation with flexion and adduction. The trial femur was removed. A Karyze size 11 stem was then impacted into place. At the end of the impaction it was noted that there was a very small crack seen over the posterior calcar. It was only in one location and was non-displaceable. I was unable to open it with a freer. The implant was co mpletely in place and with a collar. Given this contained fracture I did not place any cerclage cabl es. The hip was then reduced. The deeper tissues were injected with another portion of the periarticular cocktail. The abductor tendons were once again inspected to make sure that there were no signs of t earing while we were here. I did not see any tendon to be repaired. Therefore we proceeded with the posterior capsule repair. Three drill holes were made over the back of the greater trochanter. Sutures placed within the piriformis and conjoined tendons and posterior capsule were then passed through the holes and tied over the greater trochanter, reapproximating the capsule quite nicely to the posterior aspect of the trochanter. A single stitch was placed into the split of the capsule up onto the neck. The Charnley retractor was removed. The iliotibial band was reapproximated with a single stitch. On ce we regained our orientation a Z-lengthening was performed at the level of the vastus ridge. This added approximately 2 cm. of length to the IT band. The iliotibial band was then closed with a #1 Vi cryl. The gluteus fascia was closed with the same. Prior to closing the IT band and gluteus fascia I did irrigate the wound thoroughly with normal salin e followed by Irrisept. The Irrisept was allowed to sit for three minutes. After the iliotibial ban d was closed I did the same in the soft tissue and fat with the Irrisept as well to prevent infection . The deep tissues were then closed with #0 Vicryl followed by #2-0 Vicryl. The skin was closed wit h a running #3-0 Monocryl. Skin glue was applied over the wound and a Mepilex silver dressing was th en applied. She was then placed in an abductor pillow and transitioned over to the hospital bed without any notab le difficulties. There were no noted complications. She was transferred to [facility] in stable condition.
--- NOTE | 2019-07-18 14:39 | PT.INDS ---
Date of service: 07/18/19 Time of Service: 14:42 PT Notes PT Inpatient Discharge Summary Date: 07/18/2019 Dates of Service: 07/18/2019 only Referring Doctor: Pedro Martinez MD PT Orders: PT CONSULT: S/P R SYDNIE and IT Band Lengthening Precautions: Fall. Standard. Patient Profile/Admitting Diagnosis: Patient is a 64-year-old female trochanteric bursitis of right hip and osteoarthritis resulting from right hip dysplasia s/p R posterior approach SYDNIE, trochanteric bursa debridement, and iliotibial band lengthening on postoperative day 1. PMHX: Osteopenia GERD Hyperlipidemia Anxiety and depression Migraine headache Cervical radiculitis Agoraphobia with panic attacks Social History/Home Situation: Patient lives in a one-story home that has four steps to enter. She lives with her and grown children. 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 Equipment Owned/DME: none. Subjective: Patient reports an episode of lightheadedness early this afternoon which required resting in bed for an hour. Patient was seen an hour later and states that she is feeling a lot better and is ready to go for another walk. When asked if she has questions regarding home exercises she states that she is okay and has reviewed the packet provided to her. Objective: General Observation: Patient is seen laying supine with HOB elevated with bilateral LEIA stockings and antithromboembolic devices. She has an IV in the R UE that is disconnected. Mental Status: Alert and oriented x 4 as to person, place, time, and purpose Pain: 4/10 ROM: Right Lower Extremity: Hip flexion tested up to 90 degrees due to hip precautions. Hip abduction WFL. Knee flexion WFL. Knee extension -15 degrees. Ankle dorsiflexion allows up to 10 degrees during gait activity. Ankle plantarflexion allows about 10 degrees during walking. Left Lower Extremity: Hip flexion WFL. Hip abduction WFL. Knee flexion WFL. Ankle dorsiflexion WFL. Ankle plantarflexion WFL. Strength: Right Lower Extremity: Hip flexors 3-/5. Hip abductors 5/5. Knee flexors 5/5. Knee extensors 3-/5. Ankle dorsiflexors 3-/5. Ankle plantarflexors 3-/5. Left Lower Extremity:Hip flexors 4/5. Hip abductors 5/5. Knee flexors 5/5. Knee extensors 5/5. Ankle dorsiflexors 5/5. Ankle plantarflexors 5/5. Bed Mobility/Transfers: Rolling independent Supine to sit independent Sit to supine independent Sit to stand independent Stand to sit independent Bed to chair independent Chair to bed independent Gait: Patient ambulated 150? with supervision and FWW using reciprocal gait with FWW with complaints of mild ache on the surgery site that subsided with rest. Balance: Static Sitting: Normal Dynamic Sitting: Normal Static Standing: Fair Dynamic Standing: Fair Assessment: Patient is a 64-year-old female s/p R SYDNIE, Ilitiobial band lengthening and bursectomy. Once out of bed, her function progressed exponentially and she is able to ambulate with solely supervision. Her pain is well managed and she is a relatively active individual who is motivated to get back to work in six weeks. She lives with her and grown children in a one story home and she feels confident she will be able to get around her home. Her prognosis is good. Patient continues to present with clinical signs and symptoms consistent with current/admitting diagnoses that have resulted to mobility limitations, gait instability, generalized weakness, and impairment of motor control as demonstrated by the following impairment level findings: 1. Decreased strength to R LE major muscle groups 2. Impaired sitting/standing balance 3. Impaired activity tolerance 4. Limitation of joint range of motion in hip flexion (due to precautions), and knee extension. Impairments are contributing to the following functional limitations: 1. Inability to safely ambulate without assistive device and physical assistance 2. Increase completion time for mobility ADL performance 3. Increased fall risk 4. Inability to negotiate steps alone safely Goals: Goals X1 week 1. Bed-Chair independent MET 2. Chair-Bed independent MET 3. Independent gait on level surface with use of least restrictive device for at least 300 feet without report of pain nor dyspnea NOT MET 4. Independent stair negotiation while holding onto bilateral rails for at least 10 steps without report of pain nor dyspnea NOT MET 5. Independent with home exercise program NOT MET 6.. Good static and dynamic standing balance/tolerance NOT MET DISCHARGE RECOMMENDATIONS: Patient is to be discharged to home after all of the above goals are met and she is medically stable. May benefit from skilled physical therapy services according to orthopedic surgeon's timeline recommendations. Patient will be educated and trained on home exercise program per TKA exercise protocol in preparation for outpatient physical therapy services. TREATMENT CODE/TIME: 10484 x 22 minutes beginning at 14:38 PM. Thank you very much for this referral. Desire Dooley PT, DPT, CLT [facility]
--- NOTE | 2019-07-18 15:32 | CHAPLAIN ---
Tamra is an [employer] employee and expects to go home today or tomorrow following knee surgery. 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
--- NOTE | 2019-07-18 15:34 | PDOC.CMDIS ---
LACE Index Scoring Tool - Questions: Length of Stay (in days): 2 Acuity (Admit via E.D.?): No E.D. Visits: 0 - Answers: Total Score: 2 Risk of Readmission: Low Risk Care Management Discharge Reason for Hospitalization: trochanteric bursitis R hip and OA resulting from R hip dysplasia, now s/p R SYDNIE and ITB lengthening and abductor tendon repair. Discharge Plan: home with plan for OP PT with [facility] Patient/Family Education Needs: RN to review d/c instructions re meds and activity levels. Patient able to verbalize reason for hospitalization and how to manage care at home. Services Needed at Discharge: Physical Therapy
[2019-07-18 15:51] VITALS: BP 128/86; PULSE 90; RESP 22; TEMP 37.2; O2SAT 96
== END 2019-07-18 16:36 | disposition home or self-care (01) | DRG 470 ==
LOC: PDS 09:55 → MS 17:54
PROVIDERS: Admitting Provider Student in an Organized Health Care Education/Training Program; PCP Student in an Organized Health Care Education/Training Program; Visit Provider Student in an Organized Health Care Education/Training Program
PROC: 0SR904A Replacement of Right Hip Joint with Ceramic on Polyethylene Synthetic Substitute, Uncemented, Open Approach (ICD-10-PCS; CPT 27130; principal; 2019-07-17 12:30)
DX: M16.31 Unilateral osteoarthritis resulting from hip dysplasia, right hip (principal); T84.010A Broken internal right hip prosthesis, initial encounter; M70.61 Trochanteric bursitis, right hip; Y83.1 Surgical operation with implant of artificial internal device as the cause of abnormal reaction of the patient, or of later complication, without mention of misadventure at the time of the procedure; K21.9 Gastro-esophageal reflux disease without esophagitis; F41.8 Other specified anxiety disorders; E78.5 Hyperlipidemia, unspecified
CPT/HCPCS: 27130; 27062; 27305; 36415; 80048; 85027; NC; 72170; J0690; J1885; J2250; J2405; J8540; L1686

== ENCOUNTER 2019-08-01 11:43 | Outpatient (CLI) | payer OTHER, SELFPAY ==
--- NOTE | 2019-08-01 11:06 | DI.RAD_ITS ---
EXAM: XR HIP RT COMPLETE AP PELVIS INDICATION: first post-op visit s/p SYDNIE. COMPARISON: XR PELVIS AP from 07/17/2019 TECHNIQUE: 2D digital imaging was performed. FINDINGS: There has been no change in the alignment of the right hip prosthesis. No abnormal bony lucencies a re seen. There is mild acetabular spurring of the left hip. IMPRESSION: Stable appearance of right SYDNIE.
== END 2019-08-01 12:03 ==
PROVIDERS: PCP Student in an Organized Health Care Education/Training Program; Visit Provider Physician Assistant
DX: Z96.641 Presence of right artificial hip joint (principal); Z47.1 Aftercare following joint replacement surgery
CPT/HCPCS: 73502

== ENCOUNTER 2019-12-31 12:21 | Outpatient (REF) | payer OTHER, SELFPAY ==
--- NOTE | 2019-12-31 10:40 | PAPFT_PTH ---
PATIENT: Tamra Plata LOC: [facility] U#:[id number] AGE/SX: 64/F ROOM: RE12/31/[address]: VIRIDIANA Carrion : 1955 BED: DIS: 12/31/2019 SPEC #: [id number] RECD: 12/31/19 18:31 STATUS: BEAR REQ #: [id number] SENA: 12/31/19 10:[address]: Camila Robledo DEPT: [facility] Cytology RECD BY: Amira Hilliard ENTERED: 12/31/19 18:31 SP TYPE: PAPFT OTHR DR: Alessandra Estevez, Tissues: 1 - CX/ENDOCX FOR PAP SMEARS Procedures: PAP THIN PREP/[facility] Screening HPV DNA PROBE Comments: [id number]
== END 2019-12-31 12:41 ==
LOC: LBN 12:21
PROVIDERS: PCP Student in an Organized Health Care Education/Training Program; Visit Provider Nurse Practitioner Family
DX: Z12.4 Encounter for screening for malignant neoplasm of cervix (principal); Z11.51 Encounter for screening for human papillomavirus (HPV)
CPT/HCPCS: 88142; 87624

== ENCOUNTER 2020-01-20 09:20 | Outpatient (REF) | payer OTHER, SELFPAY | END 2020-01-20 09:40 | LOC: LBN 09:20 | PROVIDERS: PCP Student in an Organized Health Care Education/Training Program; Visit Provider Nurse Practitioner Family | DX: R30.0 Dysuria (principal) | CPT/HCPCS: 87086 ==

== ENCOUNTER 2020-03-12 02:07 | Outpatient (CLI) | payer OTHER, SELFPAY ==
--- NOTE | 2020-03-12 06:15 | DI.MAMMO_ITS ---
EXAM: MAMMO SCREENING CLINICAL HISTORY: screening,Z12.39 TECHNIQUE: Mammograms were interpreted according to the usual protocol including computer analysis w [employer] CAD system, tomosynthesis and C-view imaging. COMPARISON: 2009 through 2018. FINDINGS: The breasts are composed of mainly fatty density , Breast Density category A. No suspicious masses or suspicious microcalcifications are seen. No skin thickening or abnormal axillary lymph nodes are seen. There has been no significant change from prior exams. IMPRESSION: BI-RADS category 1, negative. Yearly screening mammography is recommended. Breast Density - Category A - Almost entirely fatty
== END 2020-03-12 02:27 ==
PROVIDERS: PCP Student in an Organized Health Care Education/Training Program; Visit Provider Nurse Practitioner Family
DX: Z12.31 Encounter for screening mammogram for malignant neoplasm of breast (principal)
CPT/HCPCS: 77063; 77067

== ENCOUNTER 2020-04-27 01:44 | Outpatient (CLI) | payer OTHER, SELFPAY ==
[2020-04-27 07:22] LABS: HCT 42.6 % (36.0-46.0); HGB 14.2 g/dL (12.0-15.5); Mean Corp. HGB Concentration 33.3 g/dL (32.0-36.0); Mean Corpuscular Hemoglobin 29.6 pg (27.0-33.0); Mean Corpuscular Volume 88.9 fL (80-95); Mean Platelet Volume 10.5 fL (8.0-11.0); Platelet Count 299 x1000/uL (130-400); RBC 4.79 m/cumm (4.00-5.20); RBC Distribution Width 13.6 % (11.7-14.6)
[2020-04-27 08:19] LABS: ALT 25 U/L (14-59); AST 19 U/L (15-37); Albumin 3.9 g/dL (3.4-5.0); Alkaline Phosphatase 66 U/L (46-116); Anion Gap 10.6 mmol/L (3-11); BUN 19 mg/dL (7-18); Bilirubin, Total 0.8 mg/dL (0.2-1.0); CO2 27.4 mmol/L (21.0-32.0); CREATININE 0.87 mg/dL (0.55-1.02); Calcium 9.2 mg/dL (8.5-10.1); Calculated LDL 156 mg/dL (<100); Chloride 105 mmol/L (98-107); Cholesterol 238 mg/dL (<200); Glucose 104 mg/dL (74-106); HDL Cholesterol 53 mg/dL (40-60); Magnesium 2.1 mg/dL (1.8-2.4); Potassium 3.8 mmol/L (3.5-5.1); Sodium 143 mmol/L (136-145); TSH (W/Ref FT4) 1.91 uIU/mL (0.36-3.74); Triglyceride 148 mg/dL (<150)
[2020-04-27 08:30] LABS: Vitamin D 25 Total 49.6 ng/ml (30-100)
== END 2020-04-27 02:04 ==
PROVIDERS: PCP Student in an Organized Health Care Education/Training Program; Visit Provider Student in an Organized Health Care Education/Training Program
DX: G47.9 Sleep disorder, unspecified (principal); K21.9 Gastro-esophageal reflux disease without esophagitis; Z86.2 Personal history of diseases of the blood and blood-forming organs and certain disorders involving the immune mechanism; Z87.898 Personal history of other specified conditions; I48.91 Unspecified atrial fibrillation; K29.70 Gastritis, unspecified, without bleeding; R68.89 Other general symptoms and signs; Z13.220 Encounter for screening for lipoid disorders; Z86.39 Personal history of other endocrine, nutritional and metabolic disease; E55.9 Vitamin D deficiency, unspecified; R53.83 Other fatigue; R63.5 Abnormal weight gain
CPT/HCPCS: 36415; 80053; 80061; 82306; 85027; 83735; 84443

== ENCOUNTER 2020-07-30 02:43 | Outpatient (CLI) | payer OTHER, SELFPAY ==
[2020-07-30 09:44] LABS: Anion Gap 10.6 mmol/L (3-11); BUN 12 mg/dL (7-18); CO2 27.4 mmol/L (21.0-32.0); CREATININE 0.82 mg/dL (0.55-1.02); Calcium 9.2 mg/dL (8.5-10.1); Calculated LDL 252 mg/dL (<100); Chloride 105 mmol/L (98-107); Cholesterol 326 mg/dL (<200); Glucose 106 mg/dL (74-106); HDL Cholesterol 52 mg/dL (40-60); Potassium 4.3 mmol/L (3.5-5.1); Sodium 143 mmol/L (136-145); Triglyceride 110 mg/dL (<150)
== END 2020-07-30 03:03 ==
PROVIDERS: PCP Student in an Organized Health Care Education/Training Program; Visit Provider Student in an Organized Health Care Education/Training Program
DX: Z13.220 Encounter for screening for lipoid disorders (principal); R79.89 Other specified abnormal findings of blood chemistry; E78.5 Hyperlipidemia, unspecified
CPT/HCPCS: 36415; 80048; 80061

== ENCOUNTER 2020-07-30 10:21 | Outpatient (CLI) | payer OTHER, SELFPAY ==
--- NOTE | 2020-07-30 08:00 | DI.RAD_ITS ---
EXAM: XR HIP RT AP LAT ONLY CLINICAL HISTORY: annual f/u. TECHNIQUE: 2D digital imaging was performed. COMPARISON: No exams were available for comparison FINDINGS: BONES: There are stable post operative changes present. No fracture or dislocation. JOINTS: The joint spaces are well maintained. No joint effusion is present. SOFT TISSUE: Normal. IMPRESSION: Stable postoperative changes. DATA REPOSITORY: RADIATION DOSE DELIVERED:
== END 2020-07-30 10:41 ==
PROVIDERS: PCP Student in an Organized Health Care Education/Training Program; Referring Provider Student in an Organized Health Care Education/Training Program; Visit Provider Student in an Organized Health Care Education/Training Program
DX: Z96.641 Presence of right artificial hip joint (principal)
CPT/HCPCS: 73502

== ENCOUNTER 2020-11-26 02:50 | Outpatient (CLI) | payer OTHER, SELFPAY ==
[2020-11-26 08:35] LABS: Calculated LDL 213 mg/dL (<100); Cholesterol 290 mg/dL (<200); HDL Cholesterol 64 mg/dL (40-60); Triglyceride 65 mg/dL (<150)
== END 2020-11-26 02:51 | disposition home or self-care (01) ==
LOC: LBO 02:50
PROVIDERS: PCP Student in an Organized Health Care Education/Training Program; Visit Provider Student in an Organized Health Care Education/Training Program
DX: E78.00 Pure hypercholesterolemia, unspecified (principal)
CPT/HCPCS: 36415; 80061

== ENCOUNTER 2021-01-21 09:13 | Outpatient (REF) | payer OTHER, SELFPAY | END 2021-01-21 09:14 | disposition home or self-care (01) | LOC: LBN 09:13 | PROVIDERS: PCP Student in an Organized Health Care Education/Training Program; Visit Provider Nurse Practitioner Family | DX: R30.0 Dysuria (principal) | CPT/HCPCS: 87077; 87086 ==

== ENCOUNTER 2021-02-23 03:27 | Outpatient (CLI) | payer OTHER, SELFPAY ==
[2021-02-23 08:39] LABS: ALT 30 U/L (14-59); AST 18 U/L (15-37); Albumin 3.8 g/dL (3.4-5.0); Alkaline Phosphatase 69 U/L (46-116); Anion Gap 8.9 mmol/L (3-11); BUN 19 mg/dL (7-18); Bilirubin, Total 0.9 mg/dL (0.2-1.0); CO2 28.1 mmol/L (21.0-32.0); CREATININE 0.8 mg/dL (0.55-1.02); Calcium 8.9 mg/dL (8.5-10.1); Calculated LDL 204 mg/dL (<100); Chloride 106 mmol/L (98-107); Cholesterol 275 mg/dL (<200); Glucose 93 mg/dL (74-106); HDL Cholesterol 54 mg/dL (40-60); Potassium 4.2 mmol/L (3.5-5.1); Sodium 143 mmol/L (136-145); Triglyceride 87 mg/dL (<150)
== END 2021-02-23 03:28 | disposition home or self-care (01) ==
LOC: LBO 03:27
PROVIDERS: PCP Student in an Organized Health Care Education/Training Program; Visit Provider Student in an Organized Health Care Education/Training Program
DX: E78.5 Hyperlipidemia, unspecified (principal); Z79.1 Long term (current) use of non-steroidal anti-inflammatories (NSAID)
CPT/HCPCS: 36415; 80053; 80061

== ENCOUNTER 2021-06-09 02:59 | Outpatient (CLI) | payer OTHER, SELFPAY ==
[2021-06-09 08:27] LABS: ALT 24 U/L (14-59)
[2021-06-09 08:36] LABS: Calculated LDL 220 mg/dL (<100); Cholesterol 298 mg/dL (<200); HDL Cholesterol 52 mg/dL (40-60); TSH (W/Ref FT4) 1.55 uIU/mL (0.36-3.74); Triglyceride 134 mg/dL (<150)
[2021-07-07 11:39] LABS: Lipoprotein (a) 219 nmol/L (<75)
== END 2021-06-09 03:00 | disposition home or self-care (01) ==
LOC: LBO 02:59
PROVIDERS: PCP Student in an Organized Health Care Education/Training Program; Visit Provider Internal Medicine
DX: E78.01 Familial hypercholesterolemia (principal); R53.83 Other fatigue; F32.9 Major depressive disorder, single episode, unspecified; Z13.220 Encounter for screening for lipoid disorders
CPT/HCPCS: 36415; 80061; 83695; 84443; 84460

== ENCOUNTER 2021-09-03 08:25 | Outpatient (CLI) | payer OTHER, SELFPAY ==
--- NOTE | 2021-09-03 08:15 | DI.RAD_ITS ---
Exam(s) XR HIP RT AP LAT ONLY EXAM: XR HIP RT AP LAT ONLY INDICATION: Pain R SYDNIE. COMPARISON: CR XR HIP RT AP LAT ONLY from 07/30/2020 TECHNIQUE: 2D digital imaging was performed. FINDINGS: Has been no change in the alignment of the right hip prosthesis or appearance of the surrounding bone . DATA REPOSITORY: RADIATION DOSE DELIVERED:
== END 2021-09-03 08:26 | disposition home or self-care (01) ==
LOC: DIORS 08:25
PROVIDERS: PCP Student in an Organized Health Care Education/Training Program; Referring Provider Student in an Organized Health Care Education/Training Program; Visit Provider Physician Assistant
DX: M25.551 Pain in right hip (principal); Z96.641 Presence of right artificial hip joint
CPT/HCPCS: 73502

== ENCOUNTER 2021-09-23 02:42 | Outpatient (CLI) | payer OTHER, SELFPAY ==
[2021-09-23 10:14] LABS: Calculated LDL 82 mg/dL (<100); Cholesterol 147 mg/dL (<200); HDL Cholesterol 50 mg/dL (40-60); Triglyceride 79 mg/dL (<150)
== END 2021-09-23 02:43 | disposition home or self-care (01) ==
LOC: LBO 02:42
PROVIDERS: PCP Student in an Organized Health Care Education/Training Program; Visit Provider Internal Medicine
DX: E78.01 Familial hypercholesterolemia (principal)
CPT/HCPCS: 36415; 80061

== ENCOUNTER 2021-12-14 18:51 | Outpatient (REF) | payer OTHER, SELFPAY | END 2021-12-14 18:52 | disposition home or self-care (01) | LOC: LBN 18:51 | PROVIDERS: PCP Student in an Organized Health Care Education/Training Program; Visit Provider Nurse Practitioner Women's Health | DX: R30.0 Dysuria (principal) | CPT/HCPCS: 87077; 87086; 87186 ==

== ENCOUNTER 2022-01-27 01:52 | Outpatient (CLI) | payer OTHER, SELFPAY ==
--- NOTE | 2022-01-27 07:15 | DI.DEXA_ITS ---
Exam(s) XR DEXA BONE DENSITY W/WO JESSIE EXAM: XR DEXA BONE DENSITY W/WO JESSIE CLINICAL HISTORY: eval of bone density,osteopenia,m85.80 TECHNIQUE: COMPARISON: CR XR HIP RT AP LAT ONLY from 09/03/2021 FINDINGS: DEXA scan was performed according to the usual protocol. Please see the accompanying data sheets. F indings for left hip scanning are T-score -1.0 with left femoral neck T-score -1.1. Prior examinatio n of April 2015 showed left hip T-score -0.7. Findings for lumbar spine scanning are T-score -1.6. Prior examination of April 2015 also showed lumb ar T-score -1.6. Left forearm scanning showed T-score -2.1, prior examination of 2012 showed forearm T-score -1.3. IMPRESSION: The evaluation is consistent with osteopenia according to the WHO criteria. The lateral vertebral sc anogram shows no evidence of a vertebral compression fracture. RADIATION DOSE DELIVERED: Total DLP
== END 2022-01-27 02:12 ==
PROVIDERS: PCP Student in an Organized Health Care Education/Training Program; Visit Provider Student in an Organized Health Care Education/Training Program
DX: M85.88 Other specified disorders of bone density and structure, other site (principal)
CPT/HCPCS: 77080

== ENCOUNTER → 2022-03-01 01:27 | Outpatient (CLI) | payer OTHER, SELFPAY ==
--- NOTE | 2022-03-01 07:30 | DI.MAMMO_ITS ---
Exam(s) MAMMO SCREENING EXAM: MAMMO SCREENING CLINICAL HISTORY: screening. TECHNIQUE: Bilateral full field digital CC and MLO mammographic images were obtained with 3D tomosyn thesis and utilizing computer aided detection (CAD). COMPARISON: Prior mammograms were reviewed, the most recent being February 2020. FINDINGS: There has been no significant change in the appearance and distribution of the fibroglandular tissue which is again noted be mostly fatty. There are no new spiculated masses nor malignant appearing microcalcification groups. There is no significant architectural distortion nor skin thickening-retraction. IMPRESSION: No radiographic evidence of malignancy. BI-RADS Category 1 - Negative Breast Density - Category A - Almost entirely fatty Breast density Category C or D implies that the patient has dense breast tissue. Dense breast tissue can make it harder to find cancer on a mammogram. Dense breast tissue is also associated with an incr eased risk of breast cancer. This information about the result of the mammogram report was provided to the patient to raise their awareness. Use this report when you speak with the patient about their risks for breast cancer, which includes their family history. At that time, you may recommend additional screening tests (Ultrasoun d or MRI) as these tests may add significant information. A negative radiographic report should not delay biopsy if a dominant or clinically suspicious mass is present. Up to ten percent of cancers are not identified on mammography. A negative report may reinforce clinical impression. Adenosis and dense breasts may obscure an underlying neoplasm. False positive reports average 6 to 10%. Patient will receive a letter notifying them of these results.
== END ==
PROVIDERS: PCP Student in an Organized Health Care Education/Training Program; Visit Provider Nurse Practitioner Family
DX: Z12.31 Encounter for screening mammogram for malignant neoplasm of breast (principal)
CPT/HCPCS: 77063; 77067

== ENCOUNTER 2022-03-01 14:49 | Outpatient (REF) | payer OTHER, SELFPAY ==
[2022-03-01 09:33] LABS: HCT 45.4 % (36.0-46.0); HGB 14.9 g/dL (11.2-15.7); MCH 29.3 pg (27.0-33.0); MCHC 32.8 % (32.0-36.0); MCV 89 fL (80-95); MPV 10.9 fL (8.0-11.0); Platelet Count 323 10^3/uL (130-400); RBC 5.09 10^6/uL (3.93-5.22); RDW 12.2 % (11.7-14.6); RDW-SD 40.2 fL; WBC 6.18 10^3/uL (4.4-10.8)
[2022-03-01 09:39] LABS: ALT 28 U/L (14-59); AST 22 U/L (15-37); Albumin 4.4 g/dL (3.4-5.0); Alkaline Phosphatase 67 U/L (46-116); Anion Gap 13.8 mmol/L (3-11); BUN 21 mg/dL (7-18); CO2 24.2 mmol/L (21.0-32.0); CREATININE 0.9 mg/dL (0.55-1.02); Calcium 9.2 mg/dL (8.5-10.1); Calculated LDL 74 mg/dL (<100); Chloride 105 mmol/L (98-107); Cholesterol 153 mg/dL (<200); Glucose 105 mg/dL (74-106); HDL Cholesterol 61 mg/dL (40-60); Sodium 143 mmol/L (136-145); Total Protein 7.7 g/dL (6.4-8.2); Triglyceride 91 mg/dL (<150)
[2022-03-01 17:42] LABS: Rheumatoid Factor <8.6 IU/mL (<12.0)
[2022-03-03 06:40] LABS: Vitamin D 25 Total 56.2 ng/mL (30-100)
== END 2022-03-01 14:50 | disposition home or self-care (01) ==
LOC: LBN 14:49
PROVIDERS: PCP Student in an Organized Health Care Education/Training Program; Visit Provider Student in an Organized Health Care Education/Training Program
DX: E78.01 Familial hypercholesterolemia (principal); E78.5 Hyperlipidemia, unspecified; M85.80 Other specified disorders of bone density and structure, unspecified site; M19.90 Unspecified osteoarthritis, unspecified site; N28.9 Disorder of kidney and ureter, unspecified; E86.0 Dehydration; Z86.2 Personal history of diseases of the blood and blood-forming organs and certain disorders involving the immune mechanism
CPT/HCPCS: 80053; 80061; 82306; 85027; 86431

== ENCOUNTER → 2022-05-05 15:25 | Outpatient (CLI) | payer OTHER, SELFPAY ==
--- NOTE | 2022-05-05 15:00 | DI.RAD_ITS ---
Exam(s) XR KNEE LT 4V AP,LAT,ANNALEE,PAT EXAM: XR KNEE LT 4V AP,LAT,ANNALEE,PAT CLINICAL HISTORY: -PAIN IN LEFT KNEE-M25.562. TECHNIQUE: 2D digital imaging was performed. COMPARISON: No exams were available for comparison FINDINGS: Four views No evidence of fracture although there is a joint effusion evident. This may signify journal derange ment. No joint space narrowing. No osteophytes. Bone density is normal. No osseous lesions. IMPRESSION: No significant osseous findings although there appears to be a joint effusion which may signify prese nce of an internal derangement DATA REPOSITORY: RADIATION DOSE DELIVERED:
== END ==
PROVIDERS: PCP Student in an Organized Health Care Education/Training Program; Visit Provider Student in an Organized Health Care Education/Training Program
DX: M25.462 Effusion, left knee (principal)
CPT/HCPCS: 73564

== ENCOUNTER → 2022-06-24 10:23 | Outpatient (BNVA) | payer MEDICARE, OTHER, SELFPAY | PROVIDERS: PCP Student in an Organized Health Care Education/Training Program; Referring Provider Student in an Organized Health Care Education/Training Program; Visit Provider Student in an Organized Health Care Education/Training Program | DX: M23.92 Unspecified internal derangement of left knee (principal); M70.52 Other bursitis of knee, left knee | CPT/HCPCS: 99213 ==

== ENCOUNTER → 2022-07-18 03:04 | Outpatient (CLI) | payer MEDICARE, OTHER, SELFPAY ==
--- NOTE | 2022-07-18 07:15 | DI.MRI_ITS ---
Exam(s) MR LOWER JOINT LT WO EXAM: MR LOWER JOINT LT WO CLINICAL HISTORY: left knee internal derangement,m23.92,pain. TECHNIQUE: Multiplanar multisequence MRI was performed. COMPARISON: CR XR KNEE LT 4V AP,LAT,ANNALEE,PAT from 05/05/2022 FINDINGS: BONES: There is no fracture or contusion pattern. JOINTS: A moderate-sized joint effusion is present. Articular cartilage: Patellofemoral joint: Articular cartilage is unremarkable. Medial femoral tibial joint: Articular cartilage is unremarkable. Lateral femoral tibial joint: Articular cartilage is unremarkable. TENDONS: Extensor mechanism: Unremarkable. Medial retinaculum: Unremarkable. Lateral retinaculum: Unremarkable. Popliteus: Unremarkable. MUSCLES: Unremarkable. MENISCI: Radial tear in the posterior horn. The lateral meniscus is unremarkable. SOFT TISSUES: Unremarkable. LIGAMENTS: Anterior Cruciate: Unremarkable. Posterior Cruciate: Unremarkable. Medial Collateral:Mild amount of surrounding fluid. No visible tear. Lateral Collateral: Unremarkable. OTHER: IMPRESSION: Radial tear of the posterior horn of the medial meniscus. Joint effusion. DATA REPOSITORY:
== END ==
PROVIDERS: PCP Student in an Organized Health Care Education/Training Program; Visit Provider Physician Assistant
DX: M25.562 Pain in left knee (principal); M23.8X2 Other internal derangements of left knee; M25.462 Effusion, left knee; S83.242A Other tear of medial meniscus, current injury, left knee, initial encounter; X58.XXXA Exposure to other specified factors, initial encounter
CPT/HCPCS: 73721

== ENCOUNTER 2022-08-30 10:57 | Day surgery (SDC) | payer MEDICARE, OTHER, SELFPAY ==
[2022-08-30] VITALS (8 sets, daily range): BP systolic 109–143; BP diastolic 46–97; PULSE 56–66; RESP 14–18; TEMP 36.3–36.8; O2SAT 96–100; BMI 32.5
--- NOTE | 2022-08-30 11:27 | W.ANESPRE ---
General Info Date of Service Date Performed: 08/30/22 Height: 5 ft 3 in Weight: 83.2 kg Body Mass Index (BMI): 32.5 Surgical Procedure: Operation Date: 08/30/22 13:10 Proposed Procedure Side Surgeon p Knee Arthroscopy Partial Medial Menisectomy Right Pedro Martinez MD Meds Allergies and Home Medications Allergies Allergy/AdvReac Type Severity Reaction Status Date / Time celecoxib [From Celebrex] Allergy Intermediate rash Verified 08/30/22 11:19 fluvastatin AdvReac Intermediate muscle Verified 08/30/22 11:19 aches, brain fog meloxicam AdvReac Intermediate nausea Verified 08/30/22 11:19 rosuvastatin [From Crestor] AdvReac Intermediate myalgias, Verified 08/30/22 11:19 HAs, fatigue tegaderm AdvReac Intermediate Skin Rash Uncoded 08/30/22 11:19 Home Medication Medication Instructions Recorded cod liver oil 1 cap PO DAILY 09/04/18 ascorbic acid (vitamin C) 1,000 mg 1,000 mg PO DAILY 07/09/19 tablet,extended release (Vitamin C ER) ibuprofen 600 mg tablet 600 mg PO TID PRN #90 tabs 07/18/19 glucosamine henderson dipot-chond henderson tab PO DAILY 04/29/20 sod-C-Mn 750 mg-600 mg-99 mg-5 mg tablet acetaminophen-caffeine 500 mg-65 1 tab PO Q6H PRN 03/16/21 mg tablet (Excedrin Tension Headache) lorazepam 0.5 mg tablet (Ativan) 0.5 mg PO DAILY PRN anxiety #6 tabs 06/23/21 cholecalciferol (vitamin D3) 50 50 mcg PO DAILY 01/07/22 mcg (2,000 unit) tablet citracal calcium 2 PO BID 01/07/22 riboflavin (vitamin B2) 400 mg 400 mg PO DAILY migraines 01/07/22 tablet ezetimibe 10 mg tablet 10 mg PO DAILY #90 tabs 04/07/22 sertraline 50 mg tablet 50 mg PO DAILY #90 tabs 04/07/22 estradiol 0.01% (0.1 mg/gram) 1 g vaginal .COMPLEX #42.5 grams 04/14/22 vaginal cream (Estrace) evolocumab 140 mg/mL subcutaneous 140 mg subcut Q2W #2 mL 08/15/22 pen injector (Repatha SureClick) cetirizine 10 mg tablet (Zyrtec) 10 mg PO DAILY 08/29/22 Current Visit Medications: Current Medications Generic Name Dose Route Start Last Admin Trade Name Idalia PRN Reason Stop Dose Admin Ringer's Solution 1,000 mls @ 80 mls/hr 08/30/22 06:00 IV 08/30/22 23:59 INFUSION FADY Cefazolin Sodium/Dextrose 2 gm in 50 mls @ 100 mls/hr 08/30/22 06:00 Ancef Duplex IVPB 08/30/22 23:59 PREOP FADY IV Miscellaneous Supplies 1 each 08/30/22 06:00 Iv Access IV 08/30/22 23:59 DIRECTED FADY Sodium Chloride 0 ml 08/30/22 06:00 Normal Saline Flush 10 Ml Syr IV 08/30/22 23:59 PRN PRN Sodium Chloride 0 ml 08/30/22 06:00 Normal Saline 10 Ml Vial IJ 08/30/22 23:59 DIRECTED PRN Sterile Water 0 ml 08/30/22 06:00 Water,Injection,Sterile 10 Ml Vial IJ 08/30/22 23:59 DIRECTED PRN PFSH Active Problems Active Problems: Problem Status Onset Code Tear of medial meniscus of left knee S83.242A Pes anserinus bursitis of left knee M70.52 Internal derangement of left knee M23.92 Left knee pain M25.562 Tinnitus H93.19 Trigger finger, right middle finger M65.331 High risk medication use Z79.899 Foot pain, right M79.671 Hyperlipidemia 04/28/17 E78.5 Familial hypercholesterolemia E78.01 Osteopenia 11/09/16 M85.80 Strain of right iliopsoas muscle S76.911A Trochanteric bursitis of right hip M70.61 Depression 04/28/17 F32.9 Anxiety 04/28/17 F41.9 Cervical radiculitis 04/28/17 M54.12 Disturbance in sleep behavior 04/28/17 G47.9 Migraine headache without aura G43.009 Anxiety with flying F40.243 CLARISSA (stress urinary incontinence, female) 11/09/16 N39.3 Agoraphobia with panic attacks 04/28/17 F40.01 History of palpitations 1995 Z87.898 Gastroesophageal reflux disease K21.9 Atrophic vaginitis 09/23/13 N95.2 Medical History Medical History Avulsion fracture of distal fibula (05/05/16) Deficient knowledge of terminal illness Close friend with terminal cancer, any/all support in managing own stress while reaching out is appreciated. History of Elevated Lipids Personal and family Hx of elevated cholesterol lab values. Diet, exercise has been main focus, but Rx may be needed, 07/2018. HLD (hyperlipidemia) Stress fracture of metatarsal bone due to multiple or repetitive stress (06/02/16) Medical History Comments:: mom has a terrible reaction very nauseous. Surgical History Surgical History (L)Breast Needle Bx (~03/1997) section (02/10/89) w/ prematurity Colonscopy (11/22/07) 2013 EGD (01/19/11) Hymenectomy (08/06/82) Chronic cystitis-intact hymen Shoulder surgery, left (~2005) Subacromial decompression Status post right hip replacement (07/17/19) S/P Rt SYDNIE; bursectomy and ITB lengthening Tobacco Smoking/Tobacco Use Status: Never Alcohol Alcohol Intake: current Alcohol intake frequency: a few times a month Alcohol type: wine Substance Use Substance use: Never Substance use type: does not use Vital Signs and Lab Results Vital Signs Most Recent Vital Signs in EMR: Most Recent Vital Signs Temp Pulse Resp BP Pulse Ox 36.8 C 61 16 135/83 97 08/30/22 11:08 08/30/22 11:08 08/30/22 11:08 08/30/22 11:08 08/30/22 11:08 Lab Results Blood Type / Crossmatch: No Data to Display Complete Blood Count: No Data to Display Complete Metabolic Panel: No Data to Display Liver Function Panel: No Data to Display Coagulation Panel: No Data to Display Cardiac Panel: No Data to Display Arterial Blood Gas: No Data to Display Venous Blood Gas: No Data to Display Pancreas Panel: No Data to Display Thyroid Panel: No Data to Display Infectious Disease: No Data to Display Blood Cultures: No Data to Display Toxicology Panel: No Data to Display Anesthesia Assessment and Plan Anesthesia History Personal History: No History of Anesthesia Complications Family History: Other Exercise Tolerance Exercise Tolerance: Metabolic Equivalents>4 Cardiac & Pulmonary Exam Cardiac Exam: Normal S1/S2 Heart Sounds Pulmonary Exam: Clear Bilateral Breath Sounds Implantable Cardiac Device Does patient have a Pacemaker or an ICD?: No Airway Exam Known Difficult Airway: No Mallampati Class: 2 Mouth Opening: Normal (> 3cm) Thyromental Distance: Greater than 3 cm Neck Range of Motion: Full ROM Neck Circumference: Normal Teeth Condition: Normal Dentition ASA Classification ASA Score: ASA 2 Emergency Case?: No NPO Status NPO Status: NPO Clears >2 hours, Solids >8 hours Anesthesia Plan Resuscitation Status: Full Code Anesthesia Technique: General Anesthesia Airway Planned: Endotracheal Tube Monitors Used: Standard Monitors Preoperative Comments:: 67 yo female for knee scope. Sig PMHx: anxiety/agoraphobia, GERD (questionably controlled, states sleeps with HOB elevated frequently, has had many symptoms the last few days), migraine, never smoker, occ etoh, Previous Anes: - spinal for SYDNIE. Plan: GAETT (due to GERD)
[2022-08-30] MEDS: Lactated Ringers 1,000 ML 80 ML IV (11:52)
--- NOTE | 2022-08-30 12:57 | HPE_ITS ---
Assessment and Plan Assessment and plan (1) Tear of medial meniscus of left knee: Status: Acute Assessment and plan: Micaela is a 67-year-old has a medial meniscal tear about the left knee. She has failed nonoperative options and is here today for a meniscectomy. I reviewed the surgery with her once again. I discussed the risk to include bleeding, infection, pain, stiffness, damage nerves and vessels, damage to muscle and tendons, worsening arthritis, blood clot. Despite these risk, she elects to proceed. History of Present Illness History of Present Illness Chief Complaint: Left Knee Medial Meniscus Tear Narrative: Micaela is a 67-year-old active female who has had persistent left knee pain. She was diagnosed with a medial meniscal tear based on clinical exam and MRI findings. She has failed nonoperative treatments and is here for the arthroscopy with meniscal intervention. She has had no new sick contacts. She denies chest pain or shortness of breath. Review of Systems All systems reviewed & are unremarkable except as noted in HPI and below PFSH All Active Problems Tear of medial meniscus of left knee (Acute) Pes anserinus bursitis of left knee (Acute) Internal derangement of left knee (Acute) Left knee pain (Acute) Lat pain post hike, medial proximal pain now .. very stiff post rest Tinnitus (Chronic) Some worsening, daytime now vs qHS. Trigger finger, right middle finger (Acute) injection 03/18/2022 High risk medication use (Chronic) Monitoring, vs high-risk .. REPATHA, ZETIA started by [facility] ([facility] [place] Rx and monitor [ ] .. [facility] ((risk of inc/dec, d/c?)) Foot pain, right (Acute) Acute on chronic, Pl fasciitis + M Neuroma. Hyperlipidemia (Chronic 04/28/17) [facility] Clinic ([facility] [place] 05/2022. Meds started/tolerated and showing improved LIP! I can continue with Rx for now, PRN Familial hypercholesterolemia (Chronic) goal: LDL-C <100mg/dL ((LDL < 100 per [facility] [place], Dr. Leo))((tolerating exe timibe and evolocumab)) Osteopenia (Chronic 11/09/16) Spine remains @ -1.6 (01/2022)... of spine only, -1.6 Strain of right iliopsoas muscle (Acute) Trochanteric bursitis of right hip (Chronic) injected 12/05/2018; 04/15/2019 RESOLVED SINCE HIP REPLACEMENT Depression (Chronic 04/28/17) Anxiety (Chronic 04/28/17) Cervical radiculitis (Chronic 04/28/17) Disturbance in sleep behavior (Acute 04/28/17) Migraine headache without aura (Chronic) Improved over the past year Anxiety with flying (Chronic) Acute on chronic issue. I support short-term small (#4) Rx for future. CLARISSA (stress urinary incontinence, female) (Chronic 11/09/16) mostly with hiking Agoraphobia with panic attacks (Chronic 04/28/17) History of palpitations (Chronic 1995) Gastroesophageal reflux disease (Chronic) Atrophic vaginitis (Chronic 09/23/13) Medical History Avulsion fracture of distal fibula (05/05/16) Deficient knowledge of terminal illness Close friend with terminal cancer, any/all support in managing own stress while reaching out is appreciated. History of Elevated Lipids Personal and family Hx of elevated cholesterol lab values. Diet, exercise has been main focus, but Rx may be needed, 07/2018. HLD (hyperlipidemia) Stress fracture of metatarsal bone due to multiple or repetitive stress (06/02/16) Surgical History (L)Breast Needle Bx (~03/1997) section (02/10/89) w/ prematurity Colonscopy (11/22/07) 2014 EGD (01/19/11) Hymenectomy (08/06/82) Chronic cystitis-intact hymen Shoulder surgery, left (~2005) Subacromial decompression Status post right hip replacement (07/17/19) S/P Rt SYDNIE; bursectomy and ITB lengthening Family History Mother Essential hypertension Osteoporosis Atrial fibrillation Hyperlipidemia GERD (gastroesophageal reflux disease) History of postoperative nausea and vomiting Father , Lung CA at age 80. Substance abuse EtOH Essential hypertension Heart disease CABG Hyperlipidemia Neoplasm Lung CA (asbestos exposure) Sister Essential hypertension Mental disorder Depression/anxiety Daughter UC (ulcerative colitis) Social History Smoking/Tobacco Use Status: Never Smoking risk assessment performed?: Yes Alcohol Intake: current Alcohol Intake frequency: a few times a month Alcohol type: wine Drug use: Never Substance use type: does not use Adopted: No Household members: spouse and children Housing: house current occupation: [employer] What type of physical activity do you participate in: walking Duration: 15-30 minutes/day Frequency: 3-4 times per week Seatbelt use: always Helmet use: Yes Working smoke detector in home: Yes Fire extinguisher in home: Yes Carbon monox detector in home: Yes Firearms in home: Yes Do you feel safe at home: Yes Do you feel safe in your relationship?: Yes Victim of physical abuse: No (in the past) Victim of emotional abuse: No (in past) Victim of sexual abuse: No Would you like helpful sources: No (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 ) Meds Allergies and Home Medications Allergies Allergy/AdvReac Type Severity Reaction Status Date / Time celecoxib [From Celebrex] Allergy Intermediate rash Verified 08/30/22 11:19 fluvastatin AdvReac Intermediate muscle Verified 08/30/22 11:19 aches, brain fog meloxicam AdvReac Intermediate nausea Verified 08/30/22 11:19 rosuvastatin [From Crestor] AdvReac Intermediate myalgias, Verified 08/30/22 11:19 HAs, fatigue tegaderm AdvReac Intermediate Skin Rash Uncoded 08/30/22 11:19 Home Medications Medication Instructions Recorded Confirmed Type cod liver oil 1 cap PO DAILY 09/04/18 08/30/22 History ascorbic acid (vitamin C) 1,000 mg 1,000 mg PO DAILY 07/09/19 08/30/22 History tablet,extended release (Vitamin C ER) ibuprofen 600 mg tablet 600 mg PO TID PRN #90 tabs 07/18/19 08/30/22 Rx glucosamine henderson dipot-chond henderson tab PO DAILY 04/29/20 06/24/22 History sod-C-Mn 750 mg-600 mg-99 mg-5 mg tablet acetaminophen-caffeine 500 mg-65 1 tab PO Q6H PRN 03/16/21 08/30/22 History mg tablet (Excedrin Tension Headache) lorazepam 0.5 mg tablet (Ativan) 0.5 mg PO DAILY PRN anxiety #6 tabs 06/23/21 08/30/22 Rx cholecalciferol (vitamin D3) 50 50 mcg PO DAILY 01/07/22 08/30/22 History mcg (2,000 unit) tablet citracal calcium 2 PO BID 01/07/22 06/24/22 History riboflavin (vitamin B2) 400 mg 400 mg PO DAILY migraines 01/07/22 08/30/22 History tablet ezetimibe 10 mg tablet 10 mg PO DAILY #90 tabs 04/07/22 08/30/22 Rx sertraline 50 mg tablet 50 mg PO DAILY #90 tabs 04/07/22 08/30/22 Rx estradiol 0.01% (0.1 mg/gram) 1 g vaginal .COMPLEX #42.5 grams 04/14/22 08/30/22 Rx vaginal cream (Estrace) flu vacc [id number] 6mos up(PF) 60 0.5 ml IM ONCE #0.5 mL 08/01/22 Clinic mcg(15 mcgx4)/0.5 mL IM syringe evolocumab 140 mg/mL subcutaneous 140 mg subcut Q2W #2 mL 08/15/22 08/30/22 Rx pen injector (Repatha SureClick) cetirizine 10 mg tablet (Zyrtec) 10 mg PO DAILY 08/29/22 08/30/22 History Exam Resp Effort & Inspection: normal respiratory effort Auscultation: clear to auscultation bilaterally Cardio Rate: regular rate Rhythm: regular rhythm Results Last Vital Signs Temp 36.8 C 08/30/22 11:08 Pulse 61 08/30/22 11:08 Resp 16 08/30/22 11:08 BP 135/83 08/30/22 11:08 Pulse Ox 97 08/30/22 11:08
[2022-08-30] MEDS: ceFAZolin 2 GM/50 ML BAG IVPB (13:02)
[2022-08-30] MEDS: Bupivacaine 0.5% Pres-Free 30 ML VIAL (13:29)
--- NOTE | 2022-08-30 13:56 | PDOC.DSDIS_ITS ---
Date of service: 08/30/22 Time of Service: 13:56 Discharge Plan Disposition Patient Disposition: HOME Condition: Good Discharge Details Reason For Visit: L knee arthroscopy Attending Provider: Pedro Martinez Primary Care Provider: Alessandra Estevez Home Meds and New Rx's Prescriptions: New acetaminophen 500 mg tablet 1,000 mg PO TID Qty: 90 0RF ibuprofen 600 mg tablet 600 mg PO TID PRN (Reason: pain) Qty: 90 0RF hydrocodone-acetaminophen 5-325 mg tablet 1 tab PO Q6H PRN (Reason: pain) Qty: 6 0RF Continued cod liver oil capsule 1 cap PO DAILY glucosam henderson [id number] mg tablet PO DAILY Label Comments: Pt states she no longer takes. citracal calcium 650 mg 2 PO BID cholecalciferol (vitamin D3) 50 mcg (2,000 unit) tablet 50 mcg PO DAILY riboflavin (vitamin B2) 400 mg tablet 400 mg PO DAILY flu vacc [id number] 6mos up(PF) 60 mcg (15 mcg x 4)/0.5 mL syringe 0.5 ml IM ONCE Qty: 0.5 0RF lorazepam [Ativan] 0.5 mg tablet 0.5 mg PO DAILY MDD 2 tablets PRN (Reason: anxiety) Qty: 6 0RF Rx Instructions: Short-term for upcoming trip. IF NOT COVERED, WILL RX 1MG, PLEASE CONFIRM COVERAGE. sertraline 50 mg tablet 50 mg PO DAILY Qty: 90 3RF Rx Instructions: Med Update .. ezetimibe 10 mg tablet 10 mg PO DAILY Qty: 90 3RF Rx Instructions: per note dated 06/05/21 Cardiology [facility] [place] [facility] estradiol [Estrace] 0.01 % (0.1 mg/gram) cream 1 g vaginal .COMPLEX Qty: 42.5 4RF Rx Instructions: 1 g VG twice weekly Repatha SureClick 140 mg/mL pen injector 140 mg subcut Q2W Qty: 2 0RF Vitamin C 1,000 mg Tablet Extended Release 1,000 mg PO DAILY cetirizine [Zyrtec] 10 mg Tablet 10 mg PO DAILY Discontinued Excedrin Tension Headache 500-65 mg tablet 1 tab PO Q6H PRN ibuprofen 600 mg tablet 600 mg PO TID PRNQty: 90 3RF Discharge Instructions Stand Alone Forms: Juan Knee Arthroscopy Referrals: Pedro Martinez MD [ [facility] STAFF PHYSICIAN] - Equipment/Supplies: Partial Weight Bearing Crutches Activity:: Activity as Tolerated Remove Dressings/Wound Care:: 72 hours Shower/Bathe:: 72 hours Diet:: As Tolerated DS: Diagnosis Discharge Diagnosis (1) Tear of medial meniscus of left knee: Status: Acute
[2022-08-30] MEDS: Normal Saline 10 ML VIAL IJ (14:05)
[2022-08-30] MEDS: HYDROmorphone 2 MG/ML SYR IVP (14:05)
--- NOTE | 2022-08-30 14:31 | W.ANESPOSTOP ---
Postoperative Evaluation Date, Time and Location Date Performed: 08/30/22 Time Performed: 14:31 Patient Location: PACU Vital Signs Most Recent Imported Vital Signs: Most Recent Vital Signs Temp Pulse Resp BP Pulse Ox 36.7 C 63 18 143/91 H 98 08/30/22 14:10 08/30/22 14:22 08/30/22 14:22 08/30/22 14:22 08/30/22 14:22 Pain Score Most Recent Pain Score: Most Recent Pain Score Pain Level 4 08/30/22 14:22 Assessment Mental Status: Awake (Alert & Oriented to Patient Baseline) Airway and Respiratory Function: Patent airway with normal (patient baseline) respiratory exam Cardiovascular Function: Hemodynamically Stable Hydration Status: Adequately Hydrated Nausea & Vomiting: No Nausea or Vomiting Pain: Pain is Moderate or Severe Postoperative Pain Management: Pain being addressed with medication Peripheral Nerve Block: Patient did not receive a nerve block
[2022-08-30] MEDS: Acetaminophen 325 MG TAB 650 MG PO (14:57)
--- NOTE | 2022-08-31 06:04 | ROE_ITS ---
Date of service: 08/30/22 Time of Service: 14:00 Operative Note Operative Note DATE OF PROCEDURE: 08/30/22 PRE-OP DIAGNOSIS: Left Knee Medial Meniscus Tear POST-OP DIAGNOSIS: same PROCEDURE: Left Knee Arthroscopic Partial Medial Menisectomy SURGEON: Pedro Martinez ANESTHESIA TYPE: General LMA/ETT Refer to Anesthesia Record ESTIMATED BLOOD LOSS: 0 PATHOLOGY: none sent COMPLICATIONS: None Patient was transported to: PACU Patient's condition: stable Indications: I have seen Tamra in clinic for symptoms of a meniscus tear. This was confirm ed based on MRI and exam findings. Nonoperative measures were exhausted but disability and pain persisted. I discussed knee arthroscopy with meniscal intervention with the patient. I reviewed the risks of the procedure to include, but not limited to, bleeding, infection, pain, stiffness, damage to nerves or vessels, recurrence, blood clot. Despite these risks, the patient elected to proceed. Findings: A diagnostic arthroscopy was performed with the following findings: Suprapatellar Pouch: Mild inflammatory changes, No loose bodies Medial Compartment: Complex medial meniscal tear involving the meniscal root, global grade II chondromalacia, no loose bodies Notch: ACL and PCL were intact Lateral Compartment: No meniscal tear, intact meniscal root, no significant chondromalacia or signs of arthritis, no loose bodies Patellofemoral Compartment: No significant chondromalacia, no apparent patellar maltracking Procedure Description: Micaela was greeted in the preoperative holding area where the correct side was identified and marked. The consent was reviewed with the patient and signed. The history and physical was updated. All questions were answered. She was taken back to the operating room. The patient was placed into the supine position on the operating room table. All bony prominences were well padded. Prophylactic antibiotics in the form of cefazolin were administered. The left leg was then prepped with Chloraprep and draped in a standard fashion with stockinette and extremity drape. A timeout to confirm correct identity, side and site, procedure, allergies, anesthesia, and medical concerns was performed. The leg was placed into a pneumatic leg gomez, [id number]. A standard lateral portal was made at the lateral border of the patella tendon in line with the inferior pole of the patella, soft spot. The skin and deep tissue was incised sharply and the blunt trochar was inserted atraumatically. A diagnostic arthroscopy was performed and the findings are listed above. The suprapatellar pouch had mild inflammatory change. The patellofemoral articulation showed no articular damage as well as good tracking. The lateral gutter had no loose bodies and the medial gutter had no loose bodies but there was a small peripheral osteophyte off of the femur. The knee was brought into some valgus stress in extension to open the medial compartment. A medial portal was made, localized by a spinal needle. The portal was created with an #11 blade through skin and capsule under direct visualization avoiding any meniscal injury. A probe was then inserted into the medial compartment. The medial compartment was fully inspected. The chondral surface of the tibia showed grade 1 and some areas of grade II chondromalacia and the surface of the femur showed slightly more global grade II chondromalacia. The medial meniscus had a complex meniscal tear which had both horizontal and radial components. This radial component was adjacent to the root and the horizontal component extending in the posterior horn. The tissue quality in this area of the meniscus appeared to be quite poor with multiple levels of fraying and splitting of the meniscus. After evaluation, the meniscus was debrided down to a stable base using a series of biters and arthroscopic alise. It was probed afterwards to confirm that the tear had been removed and the meniscus was stable. Unfortunately, the majority of the posterior meniscus was removed due to its degenerative nature with complex tearing. The notch was then inspected which showed an intact ACL and an intact PCL. The leg was then brought into a figure of 4 position. The lateral compartment was fully inspected with the arthroscope and a probe. The chondral surface of the lateral femur showed no significant chondromalacia. The chondral surface of the lateral tibia showed no significant chondromalacia. The lateral meniscus had no meniscal tear. The arthroscope was brought back into the suprapatellar pouch and the leg was in full extension. The knee was thoroughly irrigated with the arthroscopic fluid on high flow and pressure. Inflow was stopped and excess fluid was removed. The wounds were closed with 4-0 Nylon. They were dressed with Xeroform, 4x4 gauze, ABD pad, Kerlix and an DYLAN wrap. A cryo-cuff was applied. The patient tolerated the procedure well and was returned to the Same Day Surgery area in a stable condition suffering no known complication.
== END 2022-08-30 15:39 | disposition home or self-care (01) ==
PROVIDERS: PCP Student in an Organized Health Care Education/Training Program; Visit Provider Student in an Organized Health Care Education/Training Program
PROC: (CPT 29870; principal; 2022-08-30 13:00)
DX: S83.242A Other tear of medial meniscus, current injury, left knee, initial encounter (principal); M94.262 Chondromalacia, left knee; X58.XXXA Exposure to other specified factors, initial encounter
CPT/HCPCS: 29881; J0690; J1100; J1170; J1885; J2405; J2704; J3475

== ENCOUNTER → 2022-09-12 08:54 | Outpatient (BNVA) | payer MEDICARE, OTHER, SELFPAY | PROVIDERS: PCP Student in an Organized Health Care Education/Training Program; Referring Provider Student in an Organized Health Care Education/Training Program; Visit Provider Student in an Organized Health Care Education/Training Program | DX: S83.242D Other tear of medial meniscus, current injury, left knee, subsequent encounter (principal); X58.XXXD Exposure to other specified factors, subsequent encounter ==

== ENCOUNTER 2022-09-28 03:05 | Outpatient (CLI) | payer MEDICARE, OTHER, SELFPAY ==
[2022-09-28 07:35] LABS: Anion Gap 7.2 mmol/L (3-11); BUN 17 mg/dL (7-18); CO2 29.8 mmol/L (21.0-32.0); CREATININE 0.8 mg/dL (0.55-1.02); Calcium 9.1 mg/dL (8.5-10.1); Calculated LDL 51 mg/dL (<100); Chloride 104 mmol/L (98-107); Cholesterol 139 mg/dL (<200); Estimated GFR 81.72 (mL/min/1.73m2); Glucose 105 mg/dL (74-106); HDL Cholesterol 60 mg/dL (40-60); Potassium 3.9 mmol/L (3.5-5.1); Sodium 141 mmol/L (136-145); Triglyceride 144 mg/dL (<150)
== END 2022-09-28 03:06 | disposition home or self-care (01) ==
LOC: LBO 03:05
PROVIDERS: PCP Student in an Organized Health Care Education/Training Program; Visit Provider Student in an Organized Health Care Education/Training Program
DX: E86.0 Dehydration (principal); E78.2 Mixed hyperlipidemia
CPT/HCPCS: 36415; 80048; 80061

== ENCOUNTER → 2022-10-12 13:50 | Outpatient (BNVA) | payer MEDICARE, OTHER, SELFPAY | PROVIDERS: PCP Student in an Organized Health Care Education/Training Program; Referring Provider Student in an Organized Health Care Education/Training Program; Visit Provider Physician Assistant | DX: M23.92 Unspecified internal derangement of left knee (principal); S83.242A Other tear of medial meniscus, current injury, left knee, initial encounter; X58.XXXA Exposure to other specified factors, initial encounter | CPT/HCPCS: 20610; J1040 ==

== ENCOUNTER → 2022-11-07 15:23 | Outpatient (BNVA) | payer MEDICARE, OTHER, SELFPAY | PROVIDERS: PCP Student in an Organized Health Care Education/Training Program; Referring Provider Student in an Organized Health Care Education/Training Program; Visit Provider Student in an Organized Health Care Education/Training Program | DX: Z47.89 Encounter for other orthopedic aftercare (principal); M87.9 Osteonecrosis, unspecified ==

== ENCOUNTER 2022-11-11 00:30 | Outpatient (CLI) | payer MEDICARE, OTHER, SELFPAY ==
--- NOTE | 2022-11-11 06:15 | DI.MRI_ITS ---
Exam(s) MR LOWER JOINT LT WO EXAM: MR LOWER JOINT LT WO CLINICAL HISTORY: ?OSTEONECROSIS,LT KNEE PAIN,INTERNAL DERANGEMENT,M25.562,M23.92. TECHNIQUE: Multiplanar multisequence MRI was performed. COMPARISON: CR XR KNEE LT 4V AP,LAT,ANNALEE,PAT from 05/05/2022 MR MR LOWER JOINT LT WO from 07/18/2022 FINDINGS: The examination is limited due to patient motion artifact. BONES: No osteochondral defect is identified. No evidence of an acute fracture or contusion. JOINTS: In the medial femoral tibial joint, there is thinning of the articular cartilage, small subch ondral cysts and mild subchondral edema medially. There is a small joint effusion. TENDONS: Extensor mechanism: Unremarkable. Medial retinaculum: Unremarkable. Lateral retinaculum: Unremarkable. Popliteus: Unremarkable. MUSCLES: Unremarkable. MENISCI: There is decrease in size of the posterior horn of the medial meniscus. This is new since t he prior examination. This may represent a tear versus interim surgery. Please correlate clinically . The lateral meniscus is unremarkable. There is degenerative signal seen in the body of the medial meniscus. SOFT TISSUES: There is nonspecific mild edema anterior to the patella. LIGAMENTS: Anterior Cruciate: Unremarkable. Posterior Cruciate: Unremarkable. Medial Collateral:There is no evidence of a tear. There is mild hyperintense signal round the medial collateral ligament which may represent a sprain. Lateral Collateral: Unremarkable. OTHER: IMPRESSION: 1. No evidence to suggest osteonecrosis. 2. Degenerative changes seen in the medial femoral tibial joint. 3. New loss of size and abnormal signal seen in the posterior horn of the medial meniscus. This may represent a tear versus interim surgery please correlate clinically. 4. MCL sprain. 5. Small joint effusion. DATA REPOSITORY:
== END 2022-11-11 00:50 ==
LOC: DI 00:30
PROVIDERS: PCP Student in an Organized Health Care Education/Training Program; Visit Provider Student in an Organized Health Care Education/Training Program
DX: M23.8X2 Other internal derangements of left knee; M25.562 Pain in left knee; M25.462 Effusion, left knee; S83.412A Sprain of medial collateral ligament of left knee, initial encounter; X58.XXXA Exposure to other specified factors, initial encounter
CPT/HCPCS: 73721

== ENCOUNTER 2022-12-15 11:18 | Day surgery (SDC) | payer MEDICARE, OTHER, SELFPAY ==
[2022-12-15] VITALS (7 sets, daily range): BP systolic 102–146; BP diastolic 51–89; PULSE 53–68; RESP 13–18; TEMP 36.4–36.5; O2SAT 96–100; BMI 33.2
[2022-12-15] MEDS: Lactated Ringers 1,000 ML 80 ML IV (12:05)
--- NOTE | 2022-12-15 12:35 | W.ANESPRE ---
General Info Date of Service Date Performed: 12/15/22 Height: 5 ft 3 in Weight: 85 kg Body Mass Index (BMI): 33.2 Surgical Procedure: Operation Date: 12/15/22 13:40 Proposed Procedure Side Surgeon p Knee Arthroscopy, Partial Medial Menisectomy Left Pedro Martinez MD Meds Allergies and Home Medications Allergies Allergy/AdvReac Type Severity Reaction Status Date / Time celecoxib [From Celebrex] Allergy Intermediate rash Verified 12/15/22 12:19 fluvastatin AdvReac Intermediate muscle Verified 12/15/22 12:19 aches, brain fog meloxicam AdvReac Intermediate nausea Verified 12/15/22 12:19 rosuvastatin [From Crestor] AdvReac Intermediate myalgias, Verified 12/15/22 12:19 HAs, fatigue tegaderm AdvReac Intermediate Skin Rash Uncoded 12/15/22 12:19 Home Medication Medication Instructions Recorded cod liver oil 1 cap PO DAILY 09/04/18 ascorbic acid (vitamin C) 1,000 mg 1,000 mg PO DAILY 07/09/19 tablet,extended release (Vitamin C ER) lorazepam 0.5 mg tablet (Ativan) 0.5 mg PO DAILY PRN anxiety #6 tabs 06/23/21 cholecalciferol (vitamin D3) 50 50 mcg PO DAILY 01/07/22 mcg (2,000 unit) tablet citracal calcium 650 mg PO BID 01/07/22 riboflavin (vitamin B2) 400 mg 400 mg PO DAILY migraines 01/07/22 tablet ezetimibe 10 mg tablet 10 mg PO DAILY #90 tabs 04/07/22 sertraline 50 mg tablet 50 mg PO DAILY #90 tabs 04/07/22 estradiol 0.01% (0.1 mg/gram) 1 g vaginal .COMPLEX #42.5 grams 04/14/22 vaginal cream (Estrace) cetirizine 10 mg tablet (Zyrtec) 10 mg PO DAILY 08/29/22 evolocumab 140 mg/mL subcutaneous 140 mg subcut Q2W #2 mL 09/07/22 pen injector (Repkanwal SureNaty) acetaminophen 500 mg tablet 1,000 mg PO TID PRN 10/04/22 ibuprofen 600 mg tablet 600 mg PO TID PRN pain 10/04/22 lansoprazole 30 mg capsule,delayed 30 mg PO DAILY #90 caps 10/28/22 release (Prevacid) Current Visit Medications: Current Medications Generic Name Dose Route Start Last Admin Trade Name Freq PRN Reason Stop Dose Admin Ringer's Solution 1,000 mls @ 80 mls/hr 12/15/22 06:00 12/15/22 12:05 IV 01/13/23 23:59 80 mls/hr INFUSION FADY Administration Cefazolin Sodium/Dextrose 2 gm in 50 mls @ 100 mls/hr 12/15/22 06:00 Ancef Duplex IVPB 12/15/22 16:00 PREOP FADY IV Miscellaneous Supplies 1 each 12/15/22 06:00 Iv Access IV 01/13/23 23:59 DIRECTED FADY Sodium Chloride 0 ml 12/15/22 06:00 Normal Saline Flush 10 Ml Syr IV 01/13/23 23:59 PRN PRN Sodium Chloride 0 ml 12/15/22 06:00 Normal Saline 10 Ml Vial IJ 01/13/23 23:59 DIRECTED PRN Sterile Water 0 ml 12/15/22 06:00 Water,Injection,Sterile 10 Ml Vial IJ 01/13/23 23:59 DIRECTED PRN PFSH Active Problems Active Problems: Problem Status Onset Code Right knee pain M25.561 Tear of medial meniscus of left knee S83.242A Pes anserinus bursitis of left knee M70.52 Internal derangement of left knee M23.92 Left knee pain M25.562 Tinnitus H93.19 Trigger finger, right middle finger M65.331 High risk medication use Z79.899 Foot pain, right M79.671 Hyperlipidemia 04/28/17 E78.5 Familial hypercholesterolemia E78.01 Osteopenia 11/09/16 M85.80 Strain of right iliopsoas muscle S76.911A Trochanteric bursitis of right hip M70.61 Depression 04/28/17 F32.9 Anxiety 04/28/17 F41.9 Cervical radiculitis 04/28/17 M54.12 Disturbance in sleep behavior 04/28/17 G47.9 Migraine headache without aura G43.009 Anxiety with flying F40.243 CLARISSA (stress urinary incontinence, female) 11/09/16 N39.3 Agoraphobia with panic attacks 04/28/17 F40.01 History of palpitations 1995 Z87.898 Gastroesophageal reflux disease K21.9 Atrophic vaginitis 09/23/13 N95.2 Medical History Medical History Avulsion fracture of distal fibula (05/05/16) Deficient knowledge of terminal illness Close friend with terminal cancer, any/all support in managing own stress while reaching out is appreciated. History of Elevated Lipids Personal and family Hx of elevated cholesterol lab values. Diet, exercise has been main focus, but Rx may be needed, 07/2018. HLD (hyperlipidemia) Stress fracture of metatarsal bone due to multiple or repetitive stress (06/02/16) Medical History Comments:: mom has a terrible reaction very nauseous. Surgical History Surgical History (L)Breast Needle Bx (~03/1997) section (02/10/89) w/ prematurity Colonscopy (11/22/07) 2013 EGD (01/19/11) H/O arthroscopy of left knee (08/30/22) Hymenectomy (08/06/82) Chronic cystitis-intact hymen Shoulder surgery, left (~2005) Subacromial decompression Status post right hip replacement (07/17/19) S/P Rt SYDNIE; bursectomy and ITB lengthening Tobacco Smoking/Tobacco Use Status: Never Alcohol Alcohol Intake: current Alcohol intake frequency: a few times a month Alcohol type: wine Substance Use Substance use: Never Substance use type: does not use Vital Signs and Lab Results Vital Signs Most Recent Vital Signs in EMR: Most Recent Vital Signs Temp Pulse Resp BP Pulse Ox 36.4 C L 68 16 146/89 H 96 12/15/22 11:43 12/15/22 11:43 12/15/22 11:43 12/15/22 11:43 12/15/22 11:43 Lab Results Blood Type / Crossmatch: No Data to Display Complete Blood Count: No Data to Display Complete Metabolic Panel: No Data to Display Liver Function Panel: No Data to Display Coagulation Panel: No Data to Display Cardiac Panel: No Data to Display Arterial Blood Gas: No Data to Display Venous Blood Gas: No Data to Display Pancreas Panel: No Data to Display Thyroid Panel: No Data to Display Infectious Disease: No Data to Display Blood Cultures: No Data to Display Toxicology Panel: No Data to Display Anesthesia Assessment and Plan Anesthesia History Personal History: No History of Anesthesia Complications Family History: Other Exercise Tolerance Exercise Tolerance: Metabolic Equivalents>4 Pertinent Negatives Pertinent Negatives: No Major Cardiovascular Symptoms or Complaints Cardiac & Pulmonary Exam Cardiac Exam: Normal S1/S2 Heart Sounds Pulmonary Exam: Clear Bilateral Breath Sounds Implantable Cardiac Device Does patient have a Pacemaker or an ICD?: No Airway Exam Known Difficult Airway: No Mallampati Class: 2 Mouth Opening: Normal (> 3cm) Thyromental Distance: Greater than 3 cm Neck Range of Motion: Full ROM Neck Circumference: Normal Teeth Condition: Normal Dentition ASA Classification ASA Score: ASA 2 Emergency Case?: No NPO Status NPO Status: NPO Clears >2 hours, Solids >8 hours Anesthesia Plan Resuscitation Status: Full Code Anesthesia Technique: General Anesthesia Airway Planned: Endotracheal Tube Monitors Used: Standard Monitors Preoperative Comments:: TRAVON for GERD
--- NOTE | 2022-12-15 12:49 | PDOC.DSDIS_ITS ---
Date of service: 12/15/22 Time of Service: 12:53 Discharge Plan Disposition Patient Disposition: Home Condition: Good Discharge Details Reason For Visit: Left knee internal derangement Attending Provider: Pedro Martinez Primary Care Provider: Alessandra Estevez Home Meds and New Rx's Prescriptions: New acetaminophen 500 mg tablet 500 mg PO Q6H PRN (Reason: pain) Qty: 60 2RF hydrocodone-acetaminophen 5-325 mg tablet 1 tab PO Q6H PRN (Reason: severe pain) Qty: 6 0RF Rx Instructions: Take one tablet up to every 6 hours as needed for severe postoperative pain ibuprofen 600 mg tablet 600 mg PO TID PRN (Reason: pain) Qty: 60 0RF Continued cod liver oil capsule 1 cap PO DAILY citracal calcium 650 mg 650 mg PO BID cholecalciferol (vitamin D3) 50 mcg (2,000 unit) tablet 50 mcg PO DAILY riboflavin (vitamin B2) 400 mg tablet 400 mg PO DAILY lorazepam [Ativan] 0.5 mg tablet 0.5 mg PO DAILY MDD 2 tablets PRN (Reason: anxiety) Qty: 6 0RF Rx Instructions: Short-term for upcoming trip. IF NOT COVERED, WILL RX 1MG, PLEASE CONFIRM COVERAGE. sertraline 50 mg tablet 50 mg PO DAILY Qty: 90 3RF Rx Instructions: Med Update .. ezetimibe 10 mg tablet 10 mg PO DAILY Qty: 90 3RF Rx Instructions: per note dated 06/05/21 Cardiology [facility] [place] cgc estradiol [Estrace] 0.01 % (0.1 mg/gram) cream 1 g vaginal .COMPLEX Qty: 42.5 4RF Rx Instructions: 1 g VG twice weekly Repatha SureClick 140 mg/mL pen injector 140 mg subcut Q2W Qty: 2 5RF lansoprazole [Prevacid] 30 mg capsule,delayed release(DR/EC) 30 mg PO DAILY Qty: 90 1RF Vitamin C 1,000 mg Tablet Extended Release 1,000 mg PO DAILY cetirizine [Zyrtec] 10 mg Tablet 10 mg PO DAILY Discontinued acetaminophen 500 mg tablet 1,000 mg PO TID PRN ibuprofen 600 mg tablet 600 mg PO TID PRN (Reason: pain) Discharge Instructions Stand Alone Forms: Juan Knee Arthroscopy Equipment/Supplies: Partial Weight Bearing Crutches Activity:: Elevate Remove Dressings/Wound Care:: 72 hours Shower/Bathe:: 72 hours Diet:: As Tolerated Discharge Orders Discharge Orders: Discharge Order (Routine); Ordered 12/15/22 Ordered By: Enid Lopez
--- NOTE | 2022-12-15 14:33 | W.PREOPHP ---
Assessment and Plan Assessment and plan (1) Tear of medial meniscus of left knee: Status: Acute (2) Internal derangement of left knee: Status: Acute Assessment and plan: Micaela is a 67-year-old who has persistent pain about the left knee. At this point, I recommend repeat diagnostic arthroscopy with likely revision partial medial meniscectomy. She has no significant signs of arthritis on the previous arthroscopy images nor signs of osteonecrosis on the MRI. However, she has a medial based pain which is somewhat mechanical. I reviewed this with her in detail. She has not been able to progress her activities as she would like despite diligent exercise and physical therapy and [id number] analgesics. I reviewed the knee arthroscopy with her in detail. I discussed the risk. These include bleeding, infection, pain, stiffness, damage nerves and vessels, damage to muscle and tendons, continued pain. Retear, osteonecrosis, worsening arthritis, blood clot, need for repeat procedures. Despite these risk, she elects to proceed. History of Present Illness History of Present Illness Chief Complaint: Left Knee Pain Narrative: Micaela is a 67-year-old active female who had a medial meniscal tear. She underwent knee arthroscopy. She has some initial improved with her symptoms. However, she has developed recurrent medial based pain. This is worsened with turning and twisting and mechanical type symptoms such as flexion. However, she also has pain with weightbearing. She did respond to injection although it was short-lived. Repeat MRI showed some irregularity in the meniscus but no signs of osteonecrosis or other advanced arthritic pathologies. I had a long discussion with her over the phone. She was diligent with physical therapy and with other nonoperative modalities. However, she continued of pain. Therefore, I recommended repeat knee arthroscopy for potential revision partial medial meniscectomy. She denies any new symptoms. No new trauma. Her pain is over the medial aspect of the left knee. Review of Systems All systems reviewed & are unremarkable except as noted in HPI and below PFSH All Active Problems (Updated 12/15/22 @ 14:34 by Pedro Martinez MD) Right knee pain (Acute) Overuse? Tear of medial meniscus of left knee (Acute) Pes anserinus bursitis of left knee (Acute) Internal derangement of left knee (Acute) Left knee pain (Acute) Lat pain post hike, medial proximal pain now .. very stiff post rest Tinnitus (Chronic) Some worsening, daytime now vs qHS. Trigger finger, right middle finger (Acute) injection 03/18/2022 High risk medication use (Chronic) Monitoring, vs high-risk .. ADRIANNA MAGALLANES started by [facility] ([facility] [place]). Rx and monitor [ ] .. reviewing expense @ longterm.. ((risk of inc/dec, d/c?)) Foot pain, right (Acute) Acute on chronic, Pl fasciitis + M Neuroma. Hyperlipidemia (Chronic 04/28/17) [facility] Clinic ([facility] [place]), 05/2022. Meds started/tolerated and showing improved LIP! I can continue with Rx for now, PRN Familial hypercholesterolemia (Chronic) goal: LDL-C <100mg/dL ((LDL < 100 per [facility] [place], Dr. Leo))((tolerating exetimibe and evolocumab)) Osteopenia (Chronic 11/09/16) Spine remains @ -1.6 (01/2022)... of spine only, -1.6 Strain of right iliopsoas muscle (Acute) Trochanteric bursitis of right hip (Chronic) injected 12/05/2018; 04/15/2019 RESOLVED SINCE HIP REPLACEMENT Depression (Chronic 04/28/17) Anxiety (Chronic 04/28/17) Cervical radiculitis (Chronic 04/28/17) Disturbance in sleep behavior (Acute 04/28/17) Migraine headache without aura (Chronic) Improved over the past year Anxiety with flying (Chronic) Acute on chronic issue. I support short-term small (#4) Rx for future. CLARISSA (stress urinary incontinence, female) (Chronic 11/09/16) mostly with hiking Agoraphobia with panic attacks (Chronic 04/28/17) History of palpitations (Chronic 1995) Gastroesophageal reflux disease (Chronic) Atrophic vaginitis (Chronic 09/23/13) Medical History Avulsion fracture of distal fibula (05/05/16) Deficient knowledge of terminal illness Close friend with terminal cancer, any/all support in managing own stress while reaching out is appreciated. History of Elevated Lipids Personal and family Hx of elevated cholesterol lab values. Diet, exercise has been main focus, but Rx may be needed, 07/2018. HLD (hyperlipidemia) Stress fracture of metatarsal bone due to multiple or repetitive stress (06/02/16) Surgical History (L)Breast Needle Bx (~03/1997) section (02/10/89) w/ prematurity Colonscopy (11/22/07) 2013 EGD (01/19/11) H/O arthroscopy of left knee (08/30/22) Hymenectomy (08/06/82) Chronic cystitis-intact hymen Shoulder surgery, left (~2005) Subacromial decompression Status post right hip replacement (07/17/19) S/P Rt SYDNIE; bursectomy and ITB lengthening Family History Mother Essential hypertension Osteoporosis Atrial fibrillation Hyperlipidemia GERD (gastroesophageal reflux disease) History of postoperative nausea and vomiting Father , Lung CA at age 80. Substance abuse EtOH Essential hypertension Heart disease CABG Hyperlipidemia Neoplasm Lung CA (asbestos exposure) Sister Essential hypertension Mental disorder Depression/anxiety Daughter UC (ulcerative colitis) Social History Smoking/Tobacco Use Status: Never Smoking risk assessment performed?: Yes Alcohol Intake: current Alcohol Intake frequency: a few times a month Alcohol type: wine Drug use: Never Substance use type: does not use Adopted: No Household members: spouse and children Housing: house current occupation: [employer] What type of physical activity do you participate in: walking Duration: 15-30 minutes/day Frequency: 3-4 times per week Seatbelt use: always Helmet use: Yes Working smoke detector in home: Yes Fire extinguisher in home: Yes Carbon monox detector in home: Yes Firearms in home: Yes Do you feel safe at home: Yes Do you feel safe in your relationship?: Yes Victim of physical abuse: No (in the past) Victim of emotional abuse: No (in past) Victim of sexual abuse: No Would you like helpful sources: No (she has seen internet developer in the past ) Meds Allergies and Home Medications Allergies Allergy/AdvReac Type Severity Reaction Status Date / Time celecoxib [From Celebrex] Allergy Intermediate rash Verified 12/15/22 12:19 fluvastatin AdvReac Intermediate muscle Verified 12/15/22 12:19 aches, brain fog meloxicam AdvReac Intermediate nausea Verified 12/15/22 12:19 rosuvastatin [From Crestor] AdvReac Intermediate myalgias, Verified 12/15/22 12:19 HAs, fatigue tegaderm AdvReac Intermediate Skin Rash Uncoded 12/15/22 12:19 Home Medications Medication Instructions Recorded Confirmed Type cod liver oil 1 cap PO DAILY 09/04/18 12/15/22 History ascorbic acid (vitamin C) 1,000 mg 1,000 mg PO DAILY 07/09/19 12/15/22 History tablet,extended release (Vitamin C ER) lorazepam 0.5 mg tablet (Ativan) 0.5 mg PO DAILY PRN anxiety #6 tabs 06/23/21 12/15/22 Rx cholecalciferol (vitamin D3) 50 50 mcg PO DAILY 01/07/22 12/15/22 History mcg (2,000 unit) tablet citracal calcium 650 mg PO BID 01/07/22 12/15/22 History riboflavin (vitamin B2) 400 mg 400 mg PO DAILY migraines 01/07/22 12/15/22 History tablet ezetimibe 10 mg tablet 10 mg PO DAILY #90 tabs 04/07/22 12/15/22 Rx sertraline 50 mg tablet 50 mg PO DAILY #90 tabs 04/07/22 12/15/22 Rx estradiol 0.01% (0.1 mg/gram) 1 g vaginal .COMPLEX #42.5 grams 04/14/22 12/15/22 Rx vaginal cream (Estrace) cetirizine 10 mg tablet (Zyrtec) 10 mg PO DAILY 08/29/22 12/15/22 History evolocumab 140 mg/mL subcutaneous 140 mg subcut Q2W #2 mL 09/07/22 12/15/22 Rx pen injector (Repkanwal Narayan) lansoprazole 30 mg capsule,delayed 30 mg PO DAILY #90 caps 10/28/22 12/15/22 Rx release (Prevacid) acetaminophen 500 mg tablet 500 mg PO Q6H PRN pain #60 tabs 12/15/22 Rx hydrocodone 5 mg-acetaminophen 325 1 tab PO Q6H PRN severe pain #6 12/15/22 Rx mg tablet tabs ibuprofen 600 mg tablet 600 mg PO TID PRN pain #60 tabs 12/15/22 Rx Exam Const General: cooperative, healthy appearing, comfortable and no acute distress Resp Auscultation: clear to auscultation bilaterally Percussion: percussion normal Cardio Rate: regular rate Rhythm: regular rhythm Results Last Vital Signs Temp 36.4 C L 12/15/22 11:43 Pulse 68 12/15/22 11:43 Resp 16 12/15/22 11:43 BP 146/89 H 12/15/22 11:43 Pulse Ox 96 12/15/22 11:43
[2022-12-15] MEDS: ceFAZolin 2 GM/50 ML BAG IVPB (14:40)
[2022-12-15] MEDS: Bupivacaine 0.5% Pres-Free 30 ML VIAL (15:14)
[2022-12-15] MEDS: EPINEPHrine 30 MG/30 ML VIAL (15:15)
[2022-12-15] MEDS: fentaNYL 100 MCG/2 ML VIAL IVP (15:45)
--- NOTE | 2022-12-15 16:06 | W.ANESPOSTOP ---
Postoperative Evaluation Date, Time and Location Date Performed: 12/15/22 Time Performed: 16:06 Patient Location: PACU Vital Signs Most Recent Imported Vital Signs: Most Recent Vital Signs Temp Pulse Resp BP Pulse Ox 36.4 C L 53 L 14 141/63 H 98 12/15/22 15:57 12/15/22 15:57 12/15/22 15:57 12/15/22 15:57 12/15/22 15:57 Pain Score Most Recent Pain Score: Most Recent Pain Score Pain Level 4 12/15/22 15:57 Assessment Mental Status: Awake (Alert & Oriented to Patient Baseline) Airway and Respiratory Function: Patent airway with normal (patient baseline) respiratory exam Cardiovascular Function: Hemodynamically Stable Hydration Status: Adequately Hydrated Nausea & Vomiting: No Nausea or Vomiting Pain: Pain is tolerable per patient Peripheral Nerve Block: Patient did not receive a nerve block
[2022-12-15] MEDS: HYDROcodone 5/Acetaminophen 325 TAB PO (16:19)
--- NOTE | 2022-12-15 17:32 | ROE_ITS ---
Date of service: 12/15/22 Time of Service: 15:25 Operative Note Operative Note DATE OF PROCEDURE: 12/15/22 PRE-OP DIAGNOSIS: Left knee internal derangement POST-OP DIAGNOSIS: other (Complex tearing of the residual posterior medial meniscus with degenerative mucoid meniscal tissue) PROCEDURE: Arthroscopic partial medial meniscectomy and medial femoral chondroplasty, left knee SURGEON: Pedro Martinez ANESTHESIA TYPE: General LMA/ETT Refer to Anesthesia Record ESTIMATED BLOOD LOSS: 0 PATHOLOGY: none sent TOURNIQUET TIME: 0 COMPLICATIONS: None Patient was transported to: PACU Patient's condition: stable Indications: I have seen Micaela in clinic for symptoms of a recurrent medial sided knee symptoms. She had initial partial medial meniscectomy performed arthroscopically with some initial improvements but recurrent symptoms and some limitations on her progress. Nonoperative measures were exhausted but disability and pain persisted. Repeat MRI did not show any signs of osteonecrosis or acute arthritic patterns. There were no signs of infection. Therefore, I discussed revision knee arthroscopy with meniscal intervention with the patient. I reviewed the risks of the procedure to include, but not limited to, bleeding, infection, pain, stiffness, damage to nerves or vessels, recurrence, blood clot. Despite these risks, the patient elected to proceed. Findings: A diagnostic arthroscopy was performed with the following findings: Suprapatellar Pouch: Mild inflammatory changes, No loose bodies Medial Compartment: Deficient posterior aspect of the medial meniscus from previous resection with remnant tissue very friable and mucoid in nature easily breaking and splintering, minimal peripheral fibers attaching to the root, grade II chondromalacia of the femur with a few areas of grade 3 and a small loose chondral flap posteriorly and some focal grade II chondromalacia of the tibia, No loose bodies, MCL intact Notch: ACL and PCL were intact Lateral Compartment: No meniscal tear, Intact meniscal root, No significant chondromalacia or signs of arthritis, No loose bodies Patellofemoral Compartment: No significant chondromalacia, No apparent patellar maltracking Procedure Description: Micaela was greeted in the preoperative holding area where the correct side was identified and marked. The consent was reviewed with the patient and signed. The history and physical was updated. All questions were answered. She was taken back to the operating room. The patient was placed into the supine position on the operating room table. All bony prominences were well padded. Prophylactic antibiotics in the form of Cefazolin were administered. The left leg was then prepped with Chloraprep and draped in a standard fashion with stockinette and extremity drape. A timeout to confirm correct identity, s rose and site, procedure, allergies, anesthesia, and medical concerns was performed. The leg was placed into a pneumatic leg gomez, SPIDER2. A standard lateral portal was made at the lateral border of the patella tendon in line with the inferior pole of the patella, soft spot. The skin and deep tissue was incised sharply and the blunt trochar was inserted atraumatically. A diagnostic arthroscopy was performed and the findings are listed above. The suprapatellar pouch had mild inflammatory changes. The patellofemoral articulation showed no articular damage as well as good tracking. The lateral gutter had no loose bodies and the medial gutter had no loose bodies and a very small femoral osteophyte. The knee was brought into some valgus stress in extension to open the medial compartment. During this process there was a audible and palpable release and pop. There was some extra opening with valgus stress. However, there was no gross instability. I took the leg out of the spider to examine which showed a firm endpoint to valgus stress. A medial portal was made, localized by a spinal needle. The portal was created with an #11 blade through skin and capsule under direct visualization avoiding any meniscal injury. A probe was then inserted into the medial compartment. The medial compartment was fully inspected. The chondral surface of the tibia showed some areas of grade II chondromalacia and the surface of the femur showed grade II chondromalacia with a few areas of grade III chondromalacia and a loose chondral flap posteriorly which was about 2 to 3 mm in width. The medial meniscus had changes from previous partial medial meniscectomy. The edges of the resection bed had some fraying and a few loose edges of tear extension. Additionally, the remnant medial meniscal tissue was very unstable and friable. It appeared to have significant mucoid degeneration allowing my probe to sink into the tissue with very little force. There was a rim of peripheral tissue left attached to the posterior root attaching to the body of the medial meniscus but this was also quite friable with fraying and some loose meniscal tissue at the root. I then used a series of alise and biters to debride this mucoid tissue of the meniscus as well as the torn edges back down to a stable base. Unfortunate, this removed a large portion of the posterior aspect of the medial meniscus. However, I did not feel comfortable leaving any of this loose friable and torn tissue. The MCL was also inspected at this time which showed to be intact from an intra-articular visualization. Cartilage surfaces were debrided of any flaps, leaving any intact fibers. The notch was then inspected which showed an intact ACL and an intact PCL. The leg was then brought into a figure of 4 position. The lateral compartment was fully inspected with the arthroscope and a probe. The chondral surface of the lateral femur showed no significant chondromalacia. The chondral surface of the lateral tibia showed no significant chondromalacia. The lateral meniscus had no meniscal tear. The arthroscope was brought back into the suprapatellar pouch and the leg was in full extension. The knee was thoroughly irrigated with the arthroscopic fluid on high flow and pressure. Inflow was stopped and excess fluid was removed. The wounds were closed with 4-0 Nylon. They were dressed with Xeroform, 4x4 gauze, ABD pad, Kerlix and an DYLAN wrap. A cryo-cuff was applied. The patient tolerated the procedure well and was returned to the Same Day Surgery area in a stable condition suffering no known complication.
== END 2022-12-15 16:55 | disposition home or self-care (01) ==
PROVIDERS: PCP Student in an Organized Health Care Education/Training Program; Visit Provider Student in an Organized Health Care Education/Training Program
PROC: (CPT 29870; principal; 2022-12-15 13:30)
DX: M23.232 Derangement of other medial meniscus due to old tear or injury, left knee (principal); M94.262 Chondromalacia, left knee
CPT/HCPCS: 29881; J0690; J1100; J1885; J2405; J3010

== ENCOUNTER → 2022-12-26 14:01 | Outpatient (BNVA) | payer MEDICARE, OTHER, SELFPAY | PROVIDERS: PCP Student in an Organized Health Care Education/Training Program; Referring Provider Student in an Organized Health Care Education/Training Program; Visit Provider Student in an Organized Health Care Education/Training Program | DX: Z47.89 Encounter for other orthopedic aftercare (principal); M25.662 Stiffness of left knee, not elsewhere classified ==

== ENCOUNTER → 2023-02-13 13:41 | Outpatient (BNVA) | payer MEDICARE, OTHER, SELFPAY | PROVIDERS: PCP Student in an Organized Health Care Education/Training Program; Referring Provider Student in an Organized Health Care Education/Training Program; Visit Provider Student in an Organized Health Care Education/Training Program | DX: S83.242D Other tear of medial meniscus, current injury, left knee, subsequent encounter (principal); X58.XXXD Exposure to other specified factors, subsequent encounter ==

== ENCOUNTER 2023-06-06 11:42 | Outpatient (REF) | payer MEDICARE, OTHER, SELFPAY ==
--- NOTE | 2023-06-06 11:00 | PAPFT_PTH ---
PATIENT: Tamra Plata LOC: [facility] U#:[id number] AGE/SX: 68/F ROOM: RE06/06/[address]: Adia Gupta NP : [id number] BED: DIS: 06/06/2023 SPEC #: [id number] RECD: 06/06/23 13:06 STATUS: [facility] #: [id number] SENA: 06/06/23 11:[address]: Alonso RAHMAN,Adia DEPT: [facility] Cytology RECD BY: Amira Hilliard ENTERED: 06/06/23 13:07 SP TYPE: PAPFT OTHR DR: Alessandra Estevez, DO Tissues: 1 - CX/ENDOCX FOR PAP SMEARS Procedures: PAP THIN PREP/UVM Screening HPV DNA PROBE Comments: [id number]
== END 2023-06-06 11:43 | disposition home or self-care (01) ==
LOC: LBN 11:42
PROVIDERS: PCP Student in an Organized Health Care Education/Training Program; Visit Provider Nurse Practitioner Women's Health
DX: Z11.51 Encounter for screening for human papillomavirus (HPV) (principal); Z01.419 Encounter for gynecological examination (general) (routine) without abnormal findings
CPT/HCPCS: 88142; 87624

== ENCOUNTER → 2023-07-03 03:11 | Outpatient (CLI) | payer MEDICARE, OTHER, SELFPAY ==
--- NOTE | 2023-07-03 08:10 | DI.MAMMO_ITS ---
Exam(s) MAMMO SCREENING EXAM: MAMMO SCREENING CLINICAL HISTORY: screening,Z12.39 TECHNIQUE: Mammograms were interpreted according to the usual protocol including computer analysis w [email or web address][employer] CAD system, tomosynthesis and C-view imaging. COMPARISON: 2012 through 2021 FINDINGS: The breasts are composed of mainly fatty density , Breast Density category A. No suspicious masses or suspicious microcalcifications are seen. No skin thickening or abnormal axillary lymph nodes are seen. There has been no significant change from prior exams. IMPRESSION: BI-RADS Category 1, Negative mammogram Yearly screening mammography is recommended. Breast Density - Category A, fatty density. A negative radiographic report should not delay biopsy if a dominant or clinically suspicious mass is present. Up to ten percent of cancers are not identified on mammography. A negative report may reinforce clinical impression. Adenosis and dense breasts may obscure an underlying neoplasm. False positive reports average 6 to 10%. Patient will receive a letter notifying them of these results.
== END ==
PROVIDERS: PCP Student in an Organized Health Care Education/Training Program; Visit Provider Nurse Practitioner Women's Health
DX: Z12.31 Encounter for screening mammogram for malignant neoplasm of breast (principal)
CPT/HCPCS: 77063; 77067

== ENCOUNTER 2023-09-14 01:58 | Outpatient (CLI) | payer MEDICARE, OTHER, SELFPAY ==
[2023-09-14 08:28] LABS: Calculated LDL 81 mg/dL (<100); Cholesterol 163 mg/dL (<200); HDL Cholesterol 60 mg/dL (40-60); TSH (W/Ref FT4) 2.76 uIU/mL (0.36-3.74); Triglyceride 114 mg/dL (<150)
[2023-09-14 08:39] LABS: Vitamin D 25 Total 45.8 ng/mL (30-100)
== END 2023-09-14 01:59 | disposition home or self-care (01) ==
PROVIDERS: Absent Provider Student in an Organized Health Care Education/Training Program; PCP Student in an Organized Health Care Education/Training Program; Referring Provider Student in an Organized Health Care Education/Training Program; Visit Provider Student in an Organized Health Care Education/Training Program
DX: R61 Generalized hyperhidrosis (principal); M85.80 Other specified disorders of bone density and structure, unspecified site; E78.5 Hyperlipidemia, unspecified
CPT/HCPCS: 36415; 80061; 82306; 84443

== ENCOUNTER → 2023-10-02 13:22 | Outpatient (BNVA) | payer MEDICARE, OTHER, SELFPAY | PROVIDERS: PCP Student in an Organized Health Care Education/Training Program; Referring Provider Student in an Organized Health Care Education/Training Program; Visit Provider Student in an Organized Health Care Education/Training Program | DX: M23.92 Unspecified internal derangement of left knee (principal); S83.242D Other tear of medial meniscus, current injury, left knee, subsequent encounter; X58.XXXD Exposure to other specified factors, subsequent encounter | CPT/HCPCS: 20610; J1040 ==

== ENCOUNTER 2023-12-27 04:04 | Outpatient (CLI) | payer MEDICARE, OTHER, SELFPAY ==
[2023-12-27 08:17] LABS: Calculated LDL 64 mg/dL (<100); Cholesterol 140 mg/dL (<200); HDL Cholesterol 56 mg/dL (40-60); Triglyceride 101 mg/dL (<150)
[2023-12-29 10:25] LABS: Lipoprotein (a) 127 nmol/L (<75)
== END 2023-12-27 04:05 | disposition home or self-care (01) ==
LOC: LBO 04:07
PROVIDERS: PCP Student in an Organized Health Care Education/Training Program; Visit Provider Internal Medicine
DX: E78.01 Familial hypercholesterolemia (principal)
CPT/HCPCS: 36415; 80061; 83695

== ENCOUNTER → 2024-03-19 04:12 | Outpatient (CLI) | payer MEDICARE, OTHER, SELFPAY ==
--- NOTE | 2024-03-19 07:15 | DI.MRI_ITS ---
Exam(s) MR LOWER JOINT LT WO EXAM: MR LOWER JOINT LT WO CLINICAL HISTORY: continued L KNEE pain, TEAR MEDIAL MENISCUS LT KNEE, S83.242A TECHNIQUE: Multiplanar multisequence MRI of the knee was performed. COMPARISON: CR XR KNEE LT 4V AP,LAT,ANNALEE,PAT from 05/05/2022 MR MR LOWER JOINT LT WO from 11/11/2022 FINDINGS: EFFUSION: There is a small joint effusion. There is no Mishra cyst in the popliteal fossa MARROW:No evidence of fracture. There is mild subarticular edema in the outer 3rd of the subarticula r medial femoral condyle and in the sub spinous tibial plateau. No abnormal intraosseous signal seen in the lateral compartment nor in the fibular head and neck nor in the superior pole of the patella. There are no significant osseous lesions. PATELLOFEMORAL COMPARTMENT: There is mild increased signal noted within the medial aspect of the dist al most quadriceps tendon, probably element of sprain. There is no abnormal intraosseous signal in t he patella and no abnormality of the patellar ligament. There is no significant thinning of the retropatellar cartilage. No evidence of fissure nor signific ant chondral defect. No osteochondral defect at this level.There is no intraosseous signal to sugges t recent patellar dislocation. There are no patellar retinacular tears. CRUCIATE LIGAMENTS: On the present study there is signal abnormality in the most inferior aspect of t he anterior cruciate ligament and sub articular intraosseous signal is seen in the tibial spines subj acent to the attachment site of the ACL. These findings have progressed from the prior MRI scan of 0 11/11/2022. However, there does not appear to be a full-thickness tear of the ACL at this level.. The posterior cruciate ligament is intact. MEDIAL COMPARTMENT/MEDIAL MENISCUS: There is loss of substance of some of the posterior horn of the m edial meniscus again noted, similar to 11/11/2022. This is most probably related to prior surgery. There does not appear to be obvious further tearing of the medial meniscus. Anterior horn of the med ial meniscus appears intact. There is subarticular edema over the mid weight-bearing surface on the uppermost aspect of the medial condyle as well as significant cartilage thinning over the main weight -bearing surface and this appears unchanged from 11/11/2022.. Small marginal osteophyte again noted. MEDIAL COLLATERAL LIGAMENT: Intact LATERAL COMPARTMENT/LATERAL MENISCUS: There is no evidence of lateral meniscal tear.Mild thinning of the articular cartilage; less so than is evident in the medial compartment. No subarticular edema os teochondral defects, nor osteophytes. ILIOTIBIAL BAND: Intact LATERAL COLLATERAL LIGAMENT COMPLEX: The fibular collateral ligament is intact. The biceps femoris t endon is intact.Popliteus muscle and tendon are intact. IMPRESSION: 1. Compared to the most recent MRI scan of 11/11/2022 there appears to be some progression of increas ed signal related to the inferior aspect of the anterior cruciate ligament and subarticular of bone e avril in the sub spinous mid aspect of the tibial plateau. Suspect increasing intrasubstance degenera tive changes in the lower ACL. There does not appear to be a high-grade ACL tear here. The PCL uzam ins intact 2. There are no collateral ligament tears. Mild increased signal in distal quadriceps tendon. No si gnificant thinning of the retropatellar cartilage. 3. Appearance of the medial meniscus reflects prior surgery. There does not appear to be additional new meniscal tearing in the medial meniscus and there are no tears of the lateral meniscus. 4. Again noted are some degenerative cartilage changes-moderate over the main weight-bearing surface of the medial femoral condyle. Mild intraosseous subarticular edema seen in the outer 3rd of the med ial femoral condyle. Similar findings are not seen in the lateral compartment. DATA REPOSITORY:
== END ==
PROVIDERS: PCP Student in an Organized Health Care Education/Training Program; Visit Provider Student in an Organized Health Care Education/Training Program
DX: S83.242D Other tear of medial meniscus, current injury, left knee, subsequent encounter (principal); X58.XXXD Exposure to other specified factors, subsequent encounter
CPT/HCPCS: 73721

== ENCOUNTER 2024-03-19 05:21 | Outpatient (CLI) | payer MEDICARE, OTHER, SELFPAY ==
[2024-03-19 12:16] LABS: Iron 109 ug/dL (50-170); Total Iron Binding Capacity 264 ug/dL (250-450); Transferrin Sat 41 % (15-50)
[2024-03-19 12:56] LABS: Ferritin 127 ng/mL (8-252)
== END 2024-03-19 05:22 | disposition home or self-care (01) ==
LOC: LBO 05:21
PROVIDERS: Absent Provider Student in an Organized Health Care Education/Training Program; PCP Student in an Organized Health Care Education/Training Program; Referring Provider Student in an Organized Health Care Education/Training Program; Visit Provider Student in an Organized Health Care Education/Training Program
DX: R00.1 Bradycardia, unspecified (principal); R06.09 Other forms of dyspnea; R06.02 Shortness of breath
CPT/HCPCS: 36415; 73721; 82728; 83540; 83550

== ENCOUNTER → 2024-03-25 09:00 | Outpatient (BNVA) | payer MEDICARE, OTHER, SELFPAY | PROVIDERS: PCP Student in an Organized Health Care Education/Training Program; Referring Provider Student in an Organized Health Care Education/Training Program; Visit Provider Student in an Organized Health Care Education/Training Program | DX: M23.92 Unspecified internal derangement of left knee (principal); M17.12 Unilateral primary osteoarthritis, left knee; M70.52 Other bursitis of knee, left knee | CPT/HCPCS: 20610; J1010 ==

== ENCOUNTER 2024-04-04 09:13 | Outpatient (CLI) | payer MEDICARE, OTHER, SELFPAY | END 2024-04-04 09:14 | disposition home or self-care (01) | PROVIDERS: PCP Student in an Organized Health Care Education/Training Program; Visit Provider Student in an Organized Health Care Education/Training Program | DX: R55 Syncope and collapse (principal); R00.1 Bradycardia, unspecified | CPT/HCPCS: 93246 ==

== ENCOUNTER 2024-04-11 03:06 | Outpatient (CLI) | payer MEDICARE, OTHER, SELFPAY ==
[2024-04-11] MEDS: Levalbuterol HFA 15 GM INH 4 PUFF IH (09:16)
[2024-04-11] MEDS: Inhaler, Assist Device 1 EACH MC (09:16)
--- NOTE | 2024-04-22 16:10 | W.PFT ---
Date of service: 04/11/24 Time of Service: 08:03 Pulmonary Function Test Result Requesting Provider Alessandra Estevez Indications: Reactive Airway Disease Interpretation Spirometry: Normal Lung Volumes: Normal Diffusion Capacity: Normal Impression Normal spirometry, lung volumes and diffusion. Normal flow volume loop. Clinical Correlation therefore is recommended.
== END 2024-04-11 03:07 | disposition home or self-care (01) ==
LOC: RT 03:07
PROVIDERS: PCP Student in an Organized Health Care Education/Training Program; Visit Provider Student in an Organized Health Care Education/Training Program
DX: R06.09 Other forms of dyspnea (principal); J45.909 Unspecified asthma, uncomplicated
CPT/HCPCS: 00123; 94060; 94726; 94729

== ENCOUNTER 2024-04-23 04:39 | Outpatient (CLI) | payer MEDICARE, OTHER, SELFPAY ==
[2024-04-23 07:31] LABS: HGB 14.2 g/dL (11.2-15.7); MCH 29.6 pg (27.0-33.0); MCV 90 fL (80-95); Platelet Count 305 10^3/uL (130-400); RDW 13.1 % (11.7-14.6); RDW-SD 43.2 fL; WBC 7.26 10^3/uL (4.4-10.8)
[2024-04-23 08:20] LABS: ALT 31 U/L (14-59); AST 18 U/L (15-37); Albumin 3.8 g/dL (3.4-5.0); Alkaline Phosphatase 65 U/L (46-116); Anion Gap 6.2 mmol/L (3-11); BUN 17 mg/dL (7-18); Bilirubin, Total 1.03 mg/dL (0.2-1.0); CO2 30.8 mmol/L (21.0-32.0); CREATININE 0.9 mg/dL (0.55-1.02); Calcium 9.2 mg/dL (8.5-10.1); Chloride 105 mmol/L (98-107); Estimated GFR 70.51 (mL/min/1.73m2); Glucose 104 mg/dL (74-106); Sodium 142 mmol/L (136-145); Total Protein 7.4 g/dL (6.4-8.2); Vitamin D 25 Total 48.5 ng/mL (30-100)
== END 2024-04-23 04:40 | disposition home or self-care (01) ==
LOC: LBO 04:40
PROVIDERS: PCP Student in an Organized Health Care Education/Training Program; Visit Provider Student in an Organized Health Care Education/Training Program
DX: Z79.899 Other long term (current) drug therapy (principal); Z87.898 Personal history of other specified conditions; R00.1 Bradycardia, unspecified; R06.09 Other forms of dyspnea; Z86.2 Personal history of diseases of the blood and blood-forming organs and certain disorders involving the immune mechanism; Z91.89 Other specified personal risk factors, not elsewhere classified; Z87.19 Personal history of other diseases of the digestive system; K90.9 Intestinal malabsorption, unspecified
CPT/HCPCS: 36415; 80053; 82306; 85027

== ENCOUNTER 2024-04-29 10:38 | Outpatient (CLI) | payer MEDICARE, OTHER, SELFPAY ==
--- NOTE | 2024-04-30 08:33 | W.CARDEVENT ---
Date of service: 04/30/24 Time of Service: 08:33 Cardiac Event Recorder Referring Provider:: Alessandra Estevez Indications:: Syncope Cardiac Event Note: This is a cardiac event monitor. Patient was monitored for 12 days and 18 hours Rhythm throughout was sinus with an average heart rate of 67. Minimum was 43, maximum 131. There were very rare isolated atrial and ventricular ectopic beats There were several self-limited atrial runs There was no atrial fibrillation, no high-grade AV block, no pauses greater than 3 seconds Symptoms were reported which had no correlation to any dysrhythmia
== END 2024-04-29 10:39 | disposition home or self-care (01) ==
LOC: CARDOPNVT 10:38
PROVIDERS: PCP Student in an Organized Health Care Education/Training Program; Visit Provider Internal Medicine Cardiovascular Disease
DX: R55 Syncope and collapse (principal); R00.1 Bradycardia, unspecified; R06.00 Dyspnea, unspecified; I49.1 Atrial premature depolarization
CPT/HCPCS: 93248

== ENCOUNTER 2024-05-28 13:20 | Outpatient (CLI) | payer MEDICARE, OTHER, SELFPAY ==
--- NOTE | 2024-05-28 09:30 | DI.RAD_ITS ---
Exam(s) XR KNEE LT 2V AP,LAT EXAM: XR KNEE LT 2V AP,LAT CLINICAL HISTORY: LEFT KNEE PAIN. TECHNIQUE: 2D digital imaging was performed of the left knee. Two images were obtained. AP and lat eral views were obtained. COMPARISON: CR XR KNEE LT 4V AP,LAT,ANNALEE,PAT from 05/05/2022 FINDINGS: BONES: No acute fracture is present. No bony destructive lesion is seen. JOINTS: There are mild degenerative changes of the knee characterized by joint space narrowing and os teophytes. No joint effusion is seen. No loose body. SOFT TISSUE: Normal. IMPRESSION: Mild degenerative changes of the left knee. DATA REPOSITORY: RADIATION DOSE DELIVERED:
== END 2024-05-28 13:21 | disposition home or self-care (01) ==
LOC: DIORS 13:20
PROVIDERS: PCP Student in an Organized Health Care Education/Training Program; Referring Provider Student in an Organized Health Care Education/Training Program; Visit Provider Student in an Organized Health Care Education/Training Program
DX: M17.12 Unilateral primary osteoarthritis, left knee (principal)
CPT/HCPCS: 99214; 73560

== ENCOUNTER 2024-08-01 05:54 | Day surgery (SDC) | payer MEDICARE, OTHER, SELFPAY ==
[2024-08-01] VITALS (27 sets, daily range): BP systolic 91–157; BP diastolic 50–93; PULSE 69–92; RESP 13–24; TEMP 36.5–36.8; O2SAT 93–99; BMI 33.7
[2024-08-01] MEDS: Lactated Ringers 1,000 ML 30 ML IV (07:00)
[2024-08-01] MEDS: Acetaminophen 500 MG TAB 1000 MG PO (07:11)
[2024-08-01] MEDS: Gabapentin 300 MG CAP PO (07:11)
--- NOTE | 2024-08-01 07:11 | W.PM.DSUDISC ---
Date of service: 08/01/24 Time of Service: 14:00 Discharge Plan Disposition Patient Disposition: Home Condition: Stable Discharge Details Attending Provider: Scooby Miranda Primary Care Provider: Alessandra Estevez Meds and New Rx's Prescriptions: New naproxen 250 mg tablet 250 - 500 mg PO BID PRN (Reason: moderate pain and swelling) Qty: 40 0RF oxycodone 5 mg tablet 5 - 10 mg PO .q4-6h PRN (Reason: severe pain) Qty: 12 0RF Continued citracal calcium 650 mg 650 mg PO BID multivit with min-folic acid [One-A-Day Women's 50 Plus] 0.4 mg tablet 1 tab PO DAILY Culturelle 10 billion cell capsule 1 cap PO DAILY fluticasone propionate [Flonase Allergy Relief] 50 mcg/actuation spray,suspension 1 spray intranasal DAILY Rx Instructions: administer into each nostril acetaminophen [Tylenol Arthritis Pain] 650 mg tablet extended release 650 mg PO Q12H sertraline 50 mg tablet 50 mg PO DAILY Qty: 90 3RF Rx Instructions: Med Update .. estradiol [Estrace] 0.01 % (0.1 mg/gram) cream 1 g vaginal .COMPLEX Qty: 42.5 4RF Rx Instructions: 1 g VG twice weekly lansoprazole [Prevacid] 30 mg capsule,delayed release(DR/EC) 30 mg PO DAILY Qty: 90 1RF aspirin 81 mg tablet,delayed release (DR/EC) 81 mg PO DAILY Repatha SureClick 140 mg/mL pen injector 140 mg subcut Q2W Qty: 2 5RF Rx Instructions: will be refilled by [facility] [place] Pharm, 12/29/22 ezetimibe 10 mg tablet 10 mg PO DAILY Qty: 90 3RF Rx Instructions: per note dated 06/05/21 Cardiology [facility] [place] cgc Discontinued ibuprofen 600 mg tablet 600 mg PO TID PRN (Reason: pain) Qty: 90 0RF Rx Instructions: take 1 tablet by mouth every 8 hours as needed for pain Discharge Instructions Additional Instructions: Surgery: Left medial unicondylar knee replacement Activity: Weightbearing as tolerated. Recommend elevation to minimize swelling and discomfort. Walk as comfort allows. Please use crutches or walker, especially when out of the home, for 3 weeks. It is important to restore full knee extension as soon as possible. Gently increase knee flexion over the next few weeks (do not go past 90 degrees flexion for 3 weeks). Do not rest with pillows behind knee to prevent knee from getting stuck bent. Encourage ankle pumps and wiggling toes to increase circulation. A physical therapy prescription will be sent electronically to begin in about 3 weeks. Prescriptions: Resume home Aspirin 81 mg take 1 twice a day to prevent a blood clot 30 days, starting tomorrow Naproxen 250 mg take 1-2 every 12 hours with a meal as needed for moderate pain Oxycodone 5 mg take 1-2 every 4-6 hours as needed for severe pain You may use [id number] Tylenol (acetaminophen) as needed for mild pain. These pain medications may be taken all at once or in different combinations as needed. Also, recommend Colace (docusate) as a stool softener as surgery and pain medicine cause constipation. You may try [id number] diphenhydramine (Benadryl) 25-50 mg nightly as a sleep aid Dressings: Leave Band-Aid in place until follow-up. Keep clean and dry at all times. May remove Sergio wrap tomorrow. May re-wrap with Sergio wrap to help control swelling as needed. Follow-up: 10-[address] Miranda You may take off the leg compression Sergio wrap and stockings tomorrow at home. You may also leave them on a few days longer if you have a history of leg swelling or edema. Let us know right away if you develop any redness, drainage, fevers, chest pain, or trouble breathing. Do not drink alcohol or drive for at least 24 hours after anesthesia. Please call the office during business hours with any questions or concerns. Stand Alone Forms: Anesthesia Discharge Inst., Junes.Nerve Block Instructions, Alfonso Hernandez (DSU) Referrals: Scooby Miranda MD [ [facility] STAFF PHYSICIAN] - 08/13/24 10:00 am Discharge Orders Discharge Orders: Discharge Order (Routine); Ordered 08/01/24 Ordered By: Jill Santana DS: Diagnosis Discharge Diagnosis (1) Arthritis of left knee: Status: Acute
--- NOTE | 2024-08-01 07:20 | W.ANESPRE ---
General Info Date of Service Date Performed: 08/01/24 Height: 5 ft 3 in Weight: 86.3 kg Body Mass Index (BMI): 33.7 Surgical Procedure: Operation Date: 08/01/24 08:00 Proposed Procedure Side Surgeon p Knee Medial Unicondylar Arthroplasty Left Scooby Miranda MD Actual Procedure Side Surgeon p Knee Medial Unicondylar Arthroplasty Left Scooby Miranda MD Pre-Op Diagnosis Post-Op Diagnosis Arthritis of left knee Meds Allergies and Home Medications Allergies Allergy/AdvReac Type Severity Reaction Status Date / Time celecoxib (From Celebrex) Allergy Intermediate rash Verified 08/01/24 06:10 fluvastatin AdvReac Intermediate muscle Verified 08/01/24 06:10 aches, brain fog meloxicam AdvReac Intermediate nausea Verified 08/01/24 06:10 rosuvastatin (From Crestor) AdvReac Intermediate myalgias, Verified 08/01/24 06:10 HAs, fatigue tegaderm AdvReac Intermediate Skin Rash Uncoded 08/01/24 06:10 Home Medication ?Medication ?Instructions ?Recorded citracal calcium 650 mg PO BID 01/07/22 estradiol 0.01% (0.1 mg/gram) 1 g vaginal .COMPLEX #42.5 grams 04/14/22 vaginal cream (Estrace) lansoprazole 30 mg capsule,delayed 30 mg PO DAILY #90 caps 10/28/22 release (Prevacid) aspirin 81 mg tablet,delayed 81 mg PO DAILY 12/27/22 release evolocumab 140 mg/mL subcutaneous 140 mg subcut Q2W #2 mL 12/29/22 pen injector (Repatha SurePankajick) ezetimibe 10 mg tablet 10 mg PO DAILY #90 tabs 05/14/23 acetaminophen 650 mg 650 mg PO Q12H 03/14/24 tablet,extended release (Tylenol Arthritis Pain) fluticasone propionate 50 1 spray intranasal DAILY 03/14/24 mcg/actuation nasal spray,suspension (Flonase Allergy Relief) sertraline 50 mg tablet 50 mg PO DAILY #90 tabs 03/14/24 Lactobacillus rhamnosus GG 10 1 cap PO DAILY 07/01/24 billion cell capsule (Culturelle) multivitamin with minerals-folic 1 tab PO DAILY 07/01/24 acid 0.4 mg tablet (One-A-Day Women's 50 Plus) naproxen 250 mg tablet 250 - 500 mg (1 - 2 x 250 mg) PO 08/01/24 BID PRN moderate pain and swelling #40 tabs oxycodone 5 mg tablet 5 - 10 mg (1 - 2 x 5 mg) PO .q4-6h 08/01/24 PRN severe pain #12 tabs Current Visit Medications: Current Medications Generic Name Dose Route Start Last Admin Trade Name Enmanuelq PRN Reason Stop Dose Admin Acetaminophen 1,000 mg 08/01/24 06:00 08/01/24 07:11 Acetaminophen 500 Mg Tab PO 08/31/24 23:59 1,000 mg PREOP FADY Administration Droperidol 0.625 mg 08/01/24 07:05 Droperidol 5 Mg/2 Ml Vial IVP 08/31/24 07:04 DIRECTED PRN Nausea Ephedrine Sulfate 0 mg 08/01/24 07:05 Ephedrine 25 Mg/5 Ml Syringe IVP 08/31/24 07:04 DIRECTED PRN Fentanyl 0 mcg 08/01/24 07:05 Fentanyl 100 Mcg/2 Ml Vial IVP 08/31/24 07:04 DIRECTED PRN Gabapentin 300 mg 08/01/24 06:00 08/01/24 07:11 Gabapentin 300 Mg Cap PO 08/31/24 23:59 300 mg PREOP FADY Administration Hydromorphone HCl 0 mg 08/01/24 07:05 Hydromorphone 2 Mg/Ml Syr IVP 08/31/24 07:04 DIRECTED PRN Ringer's Solution 1,000 mls @ 30 mls/hr 08/01/24 06:00 08/01/24 07:00 IV 08/30/24 23:59 30 mls/hr INFUSION FAYD Administration Cefazolin Sodium/Dextrose 2 gm in 50 mls @ 100 mls/hr 08/01/24 06:00 Ancef Duplex IVPB 08/01/24 16:00 PREOP FADY Tranexamic Acid/Sodium Chloride 1,000 mg in 100 mls @ 600 mls/hr 08/01/24 06:00 IVPB 08/01/24 16:00 PREOP FADY Cefazolin Sodium/Dextrose 1 gm in 50 mls @ 100 mls/hr 08/01/24 11:30 Ancef Duplex IVPB 08/01/24 11:59 NOW ONE IV Miscellaneous Supplies 1 each 08/01/24 06:00 Iv Access IV 08/30/24 23:59 DIRECTED FADY Lactobacillus Acidophilus/Casei 1 cap 08/01/24 12:30 L. Acidophilus, Casei, Rhamnosus Cap PO 08/01/24 12:31 DAILY ONE Naloxone HCl 0 mg 08/01/24 07:05 Naloxone 0.4 Mg/Ml Vial IVP 08/31/24 07:04 PRN PRN Oxycodone HCl 0 mg 08/01/24 07:10 Oxycodone 5 Mg Tab PO 08/31/24 07:09 Q3H PRN PRN Pain Sodium Chloride 0 ml 08/01/24 06:00 Normal Saline Flush 10 Ml Syr IV 08/30/24 23:59 PRN PRN Sodium Chloride 0 ml 08/01/24 06:00 Normal Saline 10 Ml Vial IJ 08/30/24 23:59 DIRECTED PRN Sterile Water 0 ml 08/01/24 06:00 Water,Injection,Sterile 10 Ml Vial IJ 08/30/24 23:59 DIRECTED PRN PFSH Active Problems Active Problems: Problem Status Onset Code Tinnitus of both ears Acute H93.13 Arthritis of left knee Acute M17.12 Near syncope Acute R55 Bradycardia Acute R00.1 Bradycardia with 41-50 beats per minute Acute R00.1 Sweat, sweating, excessive Acute R61 LOPEZ (dyspnea on exertion) Acute 09/15/23 R06.09 Right knee pain Acute M25.561 Tear of medial meniscus of left knee Acute S83.242A Pes anserinus bursitis of left knee Acute M70.52 Internal derangement of left knee Acute M23.92 Left knee pain Acute M25.5i62 Tinnitus Chronic H93.19 Trigger finger, right middle finger Acute M65.331 High risk medication use Chronic Z79.899 Foot pain, right Acute M79.671 Hyperlipidemia Chronic 04/28/17 E78.5 Familial hypercholesterolemia Chronic E78.01 Osteopenia Chronic 11/09/16 M85.80 Strain of right iliopsoas muscle Acute S76.911A Trochanteric bursitis of right hip Chronic M70.61 Depression Chronic 04/28/17 F32.9 Anxiety Chronic 04/28/17 F41.9 Cervical radiculitis Chronic 04/28/17 M54.12 Disturbance in sleep behavior Acute 04/28/17 G47.9 Migraine headache without aura Chronic G43.009 Anxiety with flying Chronic F40.243 CLARISSA (stress urinary incontinence, female) Chronic 11/09/16 N39.3 Agoraphobia with panic attacks Chronic 04/28/17 F40.01 History of palpitations Chronic 1995 Z87.898 Gastroesophageal reflux disease Chronic K21.9 Atrophic vaginitis Chronic 09/23/13 N95.2 Medical History Medical History COVID (~08/2021) pt reported Deficient knowledge of terminal illness Close friend with terminal cancer, any/all support in managing own stress while reaching out is appreciated. History of Elevated Lipids Personal and family Hx of elevated cholesterol lab values. Diet, exercise has been main focus, but Rx may be needed, 07/2018. Stress fracture of metatarsal bone due to multiple or repetitive stress (06/02/16) Avulsion fracture of distal fibula (05/05/16) HLD (hyperlipidemia) Medical History Comments:: mom has a terrible reaction very nauseous. Pt. reports last surgery anesthesiologist, said he was going to give her something that makes her head feel like it is going to blow off, this triggered her anxiety and pt. requesting that not happen this time. Pt. reports coming awake with severe knee pain. 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) S/P Rt SYDNIE; bursectomy and ITB lengthening Shoulder surgery, left (~2005) Subacromial decompression Hymenectomy (08/06/82) Chronic cystitis-intact hymen EGD (01/19/11) Colonscopy (11/22/07) 2014 section (02/10/89) w/ prematurity (L)Breast Needle Bx (~03/1997) Tobacco Smoking/Tobacco Use Status: Never Alcohol Alcohol Intake: current Alcohol intake frequency: holidays/special occasions only Substance Use Substance use: Never Substance use type: does not use Details: alcohol: t-14 Vital Signs and Lab Results Vital Signs Most Recent Vital Signs in EMR: Most Recent Vital Signs Temp Pulse Resp BP Pulse Ox 36.8 C 69 18 157/90 H 99 08/01/24 06:20 08/01/24 06:20 08/01/24 06:20 08/01/24 06:20 08/01/24 06:20 Lab Results Blood Type / Crossmatch: No Data to Display Complete Blood Count: No Data to Display Complete Metabolic Panel: No Data to Display Liver Function Panel: No Data to Display Coagulation Panel: No Data to Display Cardiac Panel: No Data to Display Arterial Blood Gas: No Data to Display Venous Blood Gas: No Data to Display Pancreas Panel: No Data to Display Thyroid Panel: No Data to Display Infectious Disease: No Data to Display Blood Cultures: No Data to Display Toxicology Panel: No Data to Display Imaging and Studies Imaging and Studies Study information below may be from another EMR and interpreted by another provider. Please see original notes in EMR for more complete details. Pulmonary Function Summary: 04/22/24 Normal spirometry, lung volumes and diffusion. Normal flow volume loop. Clinical Correlation therefore is recommended. Anesthesia Assessment and Plan Anesthesia History Personal History: No History of Anesthesia Complications and Other Family History: No Family History of Anesthesia Complications Exercise Tolerance Exercise Tolerance: Metabolic Equivalents>4 Pertinent Negatives Pertinent Negatives: No Symptoms of GERD (regular GERD denies DOS), No Major Cardiovascular Symptoms or Complaints, No Major Pulmonary Symptoms or Complaints and No History of CVA/TIA Cardiac & Pulmonary Exam Cardiac Exam: Normal S1/S2 Heart Sounds Pulmonary Exam: Clear Bilateral Breath Sounds Implantable Cardiac Device Does patient have a Pacemaker or an ICD?: No Airway Exam Known Difficult Airway: No Mallampati Class: 2 Mouth Opening: Normal (> 3cm) Thyromental Distance: Greater than 3 cm Neck Range of Motion: Full ROM Neck Circumference: Normal Teeth Condition: Normal Dentition ASA Classification ASA Score: ASA 2 Emergency Case?: No NPO Status NPO Status: NPO Clears >2 hours, Solids >8 hours Anesthesia Plan Resuscitation Status: Full Code Anesthesia Technique: Spinal Anesthesia Airway Planned: Natural Airway Pain Management: Surgeon and patient request nerve block Monitors Used: Standard Monitors and SedLine
--- NOTE | 2024-08-01 07:23 | ROE_ITS ---
Date of service: 08/01/24 Time of Service: 07:30 Operative Note Operative Note DATE OF PROCEDURE: 08/01/24 PRE-OP DIAGNOSIS: Left knee medial compartmental arthritis POST-OP DIAGNOSIS: same PROCEDURE: Left knee medial unicompartmental arthroplasty, CPT # 85126 The assistant farm operations manager was medically required as this procedure involves retraction, protection of neurovascular structures, and manipulation of multiple instruments and implants at the same time, which cannot be done without a skilled assistant farm operations manager. SURGEON: Scooby Miranda ACID PLANT HELPER: Jill Santana ANESTHESIA TYPE: Local By Surgeon, General LMA/ETT and Primary Nerve Block Refer to Anesthesia Record ESTIMATED BLOOD LOSS: 200 TOURNIQUET TIME: 0 COMPLICATIONS: None Patient was transported to: PACU Patient's condition: stable Implants: DePuy Sigma HP partial knee size 1 metal-backed tibial tray, 7 mm tibial insert fixed bearing, size 2 femoral component Indications: Please see complete medical record for details. Findings: Isolated medial compartment arthritis and meniscus deficiency. Thin medial capsule and distal MCL. Full knee range of motion including slightly more than average varus valgus opening and no stiffness. Stable david Procedure Description: The patient was taken to the operating room and transferred to the operating room table. Spinal and general anesthesia were induced. All bony prominences were well-padded. Preoperative antibiotics and 1 g TXA were administered. A tourniquet was placed loosely over padding high on the patient's thigh. The knee and lower extremity were prepped and draped in the usual sterile fashion. The correct patient, procedure, and side of the procedure were all verified prior to incision. A slightly medial of midline longitudinal approach was used to the knee extending from the superior pole the patella to the distal aspect of the tibial tubercle. The quadriceps tendon, patella borders, and patellar tendon were exposed. A full-thickness arthrotomy was performed starting splitting the quadriceps tendon and leaving a sleeve of tissue on the medial aspect of the patella and taking care to progress along the medial margin the patellar tendon. The MCL was elevated off the proximal medial tibia. The tibial alignment jig was set in place on the anterior medial aspect of the tibia and carefully adjusted to achieve proper alignment in the coronal and sagittal planes. Reciprocating saw was used to create the vertical cut at the medial aspect of the medial tibial eminence taking care to protect the ACL ligament footprint. The transverse cut was then done using the microsagittal saw through the jig taking care to retract and protect the MCL. The bone piece and cut were inspected and found to be appropriate for patient anatomy. A box rasp was used to clean up the cut especially the L component. The 7 mm spacer block was inserted and found to have good stability in full extension with approximately 2 mm of joint space opening in about 20 degrees of flexion, but slightly tighter heading into deep flexion. The tibial trial spacer block was used to naida the rotational alignment and anterior extent of the femoral component. The spacer block was removed and the tibia was sized with the depth gauge. The distal femoral cutting block was inserted taking care to orient it appropriately. The cut was done using the saw through the guide. The posterior cutting block was then applied to the distal cut, +1 mm additional bone removed to equalize the flexion and extension gaps, ensured to be flush, rotation set, and it was pinned in place. The posterior cut was completed through the guide. The guide was removed, and the femur was sized with the femoral sizing blocks. The appropriate sized cutting jig was selected. Care was taken to ensure the block was flush with the resected distal and posterior femur bone surfaces. A curved gouge was used to cut the profile of the proximal tip of the femoral prosthesis, naida the extent of the anterior chamfer cut, and prevent trochlear cartilage delamination. The anterior cut was done using the osteotomes, the drill was used to drill the 2 peg holes, and the posterior chamfer cut was done through the jig with the saw. This last cutting block and bone cuts were removed. The medial meniscus remnant was removed. The femoral component trial was placed on the distal femur and the 7 mm spacer block confirmed appropriate balancing in flexion, extension, and again 2 mm of medial joint space opening in about 20 degrees of flexion. Tibial template was inserted and the size confirmed to be appropriate. The keel was used by hand to remove bone from the slot and the tibial peg drill was used in the peg hole. The pulse lavage was used to clean the bone surfaces. SmartSet medium viscosity cement was prepared. At the appropriate time during the early working phase, the cement was applied to the backside of the tibial and femoral components. Then, cement was carefully placed and pressurized into the proximal tibia taking care to only have minimal cement posteriorly. The tibial component was inserted at an angle and then impacted directing pressure from posterior to anterior to keep the flow of cement from posterior to anterior. Cement was then applied to the distal femur and the femoral component impacted. Excess cement was removed. The knee was brought into full extension and this position with axial load was maintained until the cement was completely hardened at 21 minutes. A combination R.E.C.K. (123 mg Ropivacaine, 0.25 mg Epinephrine, 0.04 mg Cloni dine, and 15 mg Ketorolac) 50 ml injection was widely infiltrated about the knee. The wound was copiously irrigated with the pulse lavage and Surgiphor. Tibial tray resin mixer was removed, and the final tibial insert was inserted and clicked into place. The knee was tested through range of motion found to be stable with equal balancing from full extension to flexion past 90 degrees and a couple m illimeters of medial joint space opening in about 20 degrees of flexion. Appropriate hemostasis was achieved. The capsule was approximated using #1 Vicryl in a figure-of-8 interrupted fashion and then closed using Stratafix #1 PDS barbed suture in a running fashion. The superficial layers were irrigated. Subcutaneous tissue was closed using 2-0 Monocryl in a buried interrupted fashion. Skin was closed using 3-0 Monocryl in a buried subcuticular fashion. The skin incision was glued and then covered with a Mepilex Ag dressing. An Sergio wrap was applied from the foot up to the thigh. The patient awoke from anesthesia without complication was transferred to the recovery room in stable condition.
[2024-08-01] MEDS: ceFAZolin 2 GM/50 ML BAG IVPB (08:04)
[2024-08-01] MEDS: TRANEXAMIC ACID/SOD. CHL. 1,000 MG/100 ML BAG 600 MG IVPB (08:15)
--- NOTE | 2024-08-01 08:29 | W.ANESNERVE ---
Nerve Block Single Injection Procedure Date and Time Date Performed: 08/01/24 Procedure Start: 07:27 Location Where Procedure Performed Procedure Location: Day Surgery Unit Reason Performed: Postoperative Analgesia Requesting Provider: Scooby Miranda Timeout Performed Timeout Performed: Yes Monitoring Used ECG, Blood Pressure, SpO2 and See EMR for corresponding vital signs Sterility Sterility: Hand Hygiene, Surgical Cap, Surgical Mask, Sterile Gloves, Sterile Drape/Sheet, Eye Protection and Chlorhexidine Sedation Given During Procedure Sedation Given (Indicate Dose Given): Versed IV Dose:: 3mg Patient Mental Status Patient Mental Status: Sedate with meaningful communication Nerve Block 1st Nerve Block: Laterality: Left Block Type: Adductor Canal Ultrasound Image Saved?: No Needle / Catheter Used: 100mm SonoPlex II Local Anesthetic Bolus (Indicate Dose Given): Lidocaine used for local infiltration of skin, Injected in 3-5ml increments after negative blood aspiration and Ropivacaine 0.5% Dose:: 19ml Additives (Indicate Dose Given): Epinephrine to make 1:200,000 (5mcg/ml) Dose:: 95mcg and Decadron Dose:: 10mg Ultrasound: Sterile probe cover and gel used Nerve Stimulator: Not Used Paresthesia: None Procedure Tolerated: No Complications and Patient tolerated well Procedure Outcome: Successful Performed By: Chun Pope Supervised By: Seng Cline
[2024-08-01] MEDS: Bupivacaine 0.25% Pres-Free W/EPI 30 ML VIAL (08:49)
[2024-08-01] MEDS: ceFAZolin 1 GM/50 ML BAG IVPB (11:47)
--- NOTE | 2024-08-01 12:13 | DI.RAD_ITS ---
Exam(s) XR KNEE LT 2V AP,LAT EXAM: XR KNEE LT 2V AP,LAT CLINICAL HISTORY: Knee arthritis. TECHNIQUE: 2D digital imaging was performed of the left knee. Two images were obtained. AP and lat eral views were obtained. COMPARISON: CR XR KNEE LT 2V AP,LAT from 05/28/2024 FINDINGS: The patient is now status post left knee hemiarthroplasty. The orthopedic hardware appears in good p osition. Postsurgical changes are seen in the soft tissues. The bones are intact and normally shale miner blasting alized. IMPRESSION: Status post left knee hemiarthroplasty. DATA REPOSITORY: RADIATION DOSE DELIVERED:
[2024-08-01] MEDS: Lactobacillus Acidophilus CAP 1 CAP PO (13:25)
--- NOTE | 2024-08-01 14:16 | W.ANESPOSTOP ---
Postoperative Evaluation Date, Time and Location Date Performed: 08/01/24 Time Performed: 14:16 Patient Location: Day Surgery Unit Vital Signs Most Recent Imported Vital Signs: Most Recent Vital Signs Temp Pulse Resp BP Pulse Ox 36.7 C 78 16 112/61 98 08/01/24 13:56 08/01/24 13:56 08/01/24 13:56 08/01/24 13:56 08/01/24 13:56 Pain Score Most Recent Pain Score: Most Recent Pain Score Pain Level 0 08/01/24 13:56 Assessment Mental Status: Awake (Alert & Oriented to Patient Baseline) Airway and Respiratory Function: Patent airway with normal (patient baseline) respiratory exam Cardiovascular Function: Hemodynamically Stable Hydration Status: Adequately Hydrated Nausea & Vomiting: No Nausea or Vomiting Pain: Pt. Denies Any Pain Peripheral Nerve Block: Regional nerve block not resolved at time of post operative discharge
== END 2024-08-01 15:46 | disposition home or self-care (01) ==
PROVIDERS: PCP Student in an Organized Health Care Education/Training Program; Visit Provider Student in an Organized Health Care Education/Training Program
PROC: (CPT 27446; principal; 2024-08-01 07:30)
DX: M17.12 Unilateral primary osteoarthritis, left knee (principal); E78.5 Hyperlipidemia, unspecified; M85.80 Other specified disorders of bone density and structure, unspecified site; G43.009 Migraine without aura, not intractable, without status migrainosus; K21.9 Gastro-esophageal reflux disease without esophagitis; G89.18 Other acute postprocedural pain
CPT/HCPCS: 27446; 64447; 73560; C1776; J0171; J0665; J0690; J1100; J2250; J2371; J2405; J2704

== ENCOUNTER 2024-08-13 15:16 | Outpatient (CLI) | payer MEDICARE, OTHER, SELFPAY ==
--- NOTE | 2024-08-13 10:15 | DI.RAD_ITS ---
Exam(s) XR KNEE LT 2V AP,LAT EXAM: XR KNEE LT 2V AP,LAT INDICATION: F/U LEFT UKA. COMPARISON: CR XR KNEE LT 2V AP,LAT from 08/01/2024 TECHNIQUE: 2D digital imaging was performed. Two views. FINDINGS: Stable alignment of medial femoral tibial joint space prosthesis. No new abnormalities. DATA REPOSITORY: RADIATION DOSE DELIVERED:
== END 2024-08-13 15:17 | disposition home or self-care (01) ==
LOC: DIORS 15:16
PROVIDERS: PCP Student in an Organized Health Care Education/Training Program; Referring Provider Student in an Organized Health Care Education/Training Program; Visit Provider Student in an Organized Health Care Education/Training Program
DX: Z47.1 Aftercare following joint replacement surgery (principal); Z96.652 Presence of left artificial knee joint
CPT/HCPCS: 99024; 73560

== ENCOUNTER 2024-08-27 15:13 | Outpatient (CLI) | payer MEDICARE, OTHER, SELFPAY ==
--- NOTE | 2024-08-27 10:15 | DI.RAD_ITS ---
Exam(s) XR KNEE LT 2V AP,LAT EXAM: XR KNEE LT 2V AP,LAT INDICATION: F/U LEFT UKA. COMPARISON: CR XR KNEE LT 2V AP,LAT from 08/13/2024 TECHNIQUE: 2D digital imaging was performed. Two views. FINDINGS: Stable alignment of medial femoral tibial joint space prosthesis. No new abnormalities. DATA REPOSITORY: RADIATION DOSE DELIVERED:
== END 2024-08-27 15:14 | disposition home or self-care (01) ==
LOC: DIORS 15:14
PROVIDERS: PCP Student in an Organized Health Care Education/Training Program; Referring Provider Student in an Organized Health Care Education/Training Program; Visit Provider Student in an Organized Health Care Education/Training Program
DX: Z47.1 Aftercare following joint replacement surgery (principal); Z96.652 Presence of left artificial knee joint
CPT/HCPCS: 99024; 73560

== ENCOUNTER 2024-09-25 14:55 | Outpatient (CLI) | payer MEDICARE, OTHER, SELFPAY ==
--- NOTE | 2024-09-25 13:30 | DI.RAD_ITS ---
Exam(s) XR KNEE LT 2V AP,LAT EXAM: XR KNEE LT 2V AP,LAT INDICATION: F/U LEFT UKA. COMPARISON: No exams were available for comparison TECHNIQUE: 2D digital imaging was performed. Two views. FINDINGS: Stable alignment of medial femoral tibial joint space prosthesis. No abnormal surrounding bony lucen cies. They lateral femoral tibial joint space is maintained. No visible joint effusion. DATA REPOSITORY: RADIATION DOSE DELIVERED:
== END 2024-09-25 14:56 | disposition home or self-care (01) ==
LOC: DIORS 14:55
PROVIDERS: PCP Student in an Organized Health Care Education/Training Program; Visit Provider Student in an Organized Health Care Education/Training Program
DX: Z47.1 Aftercare following joint replacement surgery (principal); Z96.652 Presence of left artificial knee joint
CPT/HCPCS: 99024; 73560

== ENCOUNTER 2024-11-05 02:28 | Outpatient (CLI) | payer MEDICARE, OTHER, SELFPAY ==
[2024-11-05 07:55] LABS: Calculated LDL 82 mg/dL (<100); Cholesterol 173 mg/dL (<200); HDL Cholesterol 68 mg/dL (40-60); Triglyceride 116 mg/dL (<150)
[2024-11-06 16:53] LABS: Lipoprotein (a) 149 nmol/L (<75)
== END 2024-11-05 02:29 | disposition home or self-care (01) ==
PROVIDERS: PCP Student in an Organized Health Care Education/Training Program; Visit Provider Physician Assistant
DX: E78.01 Familial hypercholesterolemia (principal)
CPT/HCPCS: 36415; 80061; 83695

== ENCOUNTER 2024-11-26 15:26 | Outpatient (CLI) | payer MEDICARE, OTHER, SELFPAY ==
--- NOTE | 2024-11-26 13:00 | DI.RAD_ITS ---
Exam(s) XR KNEE LT 2V AP,LAT EXAM: XR KNEE LT 2V AP,LAT INDICATION: F/U LEFT UKA. COMPARISON: CR XR KNEE LT 2V AP,LAT from 09/25/2024 TECHNIQUE: 2D digital imaging was performed. Two views. FINDINGS: Stable appearance of medial femoral tibial joint space prosthesis. No abnormal surrounding lucencies . The lateral femoral tibial joint space is maintained. There is mild spurring at the articular aspect of the patella. DATA REPOSITORY: RADIATION DOSE DELIVERED:
== END 2024-11-26 15:27 | disposition home or self-care (01) ==
LOC: DIORS 15:26
PROVIDERS: PCP Student in an Organized Health Care Education/Training Program; Visit Provider Student in an Organized Health Care Education/Training Program
DX: M17.12 Unilateral primary osteoarthritis, left knee (principal)
CPT/HCPCS: 99213; 73560

== ENCOUNTER 2025-01-21 11:22 | Outpatient (CLI) | payer MEDICARE, OTHER, SELFPAY ==
--- NOTE | 2025-01-21 11:00 | DI.RAD_ITS ---
Exam(s) XR KNEE RT 2V AP,LAT EXAM: XR KNEE RT 2V AP,LAT CLINICAL HISTORY: RIGHT KNEE PAIN. TECHNIQUE: 2D digital imaging was performed. Three views. COMPARISON: None FINDINGS: BONES: No acute fracture is present. No bony destructive lesion is seen. Enthesophyte at the deysi ceps insertion on the patella. JOINTS: The joint spaces are maintained. There is minimal spurring at the articular aspect of. The knee is normally aligned. No joint effusion is seen. SOFT TISSUE: Normal. IMPRESSION: Minimal degenerative changes. DATA REPOSITORY: RADIATION DOSE DELIVERED:
== END 2025-01-21 11:23 | disposition home or self-care (01) ==
LOC: DIORS 11:23
PROVIDERS: PCP Student in an Organized Health Care Education/Training Program; Referring Provider Student in an Organized Health Care Education/Training Program; Visit Provider Student in an Organized Health Care Education/Training Program
DX: M17.12 Unilateral primary osteoarthritis, left knee (principal); M70.51 Other bursitis of knee, right knee
CPT/HCPCS: 99213; 73560

== ENCOUNTER 2025-03-18 02:23 | Outpatient (CLI) | payer MEDICARE, OTHER, SELFPAY ==
[2025-03-18 10:54] LABS: HGB 14.5 g/dL (11.2-15.7); MCH 29.5 pg (27.0-33.0); MCV 89 fL (80-95); MPV 10.2 fL (8.0-11.0); Platelet Count 320 10^3/uL (130-400); RBC 4.92 10^6/uL (3.93-5.22); RDW 12.8 % (11.7-14.6); RDW-SD 42.2 fL
[2025-03-18 11:46] LABS: ALT 31 U/L (14-59); AST 23 U/L (15-37); Albumin 3.9 g/dL (3.4-5.0); Alkaline Phosphatase 81 U/L (46-116); Anion Gap 7.9 mmol/L (3-11); BUN 19 mg/dL (7-18); Bilirubin, Total 0.9 mg/dL (0.2-1.0); CO2 29.1 mmol/L (21.0-32.0); CREATININE 0.8 mg/dL (0.55-1.02); Calcium 9.3 mg/dL (8.5-10.1); Chloride 105 mmol/L (98-107); Estimated GFR 80.71 (mL/min/1.73m2); Glucose 100 mg/dL (74-106); Potassium 4.1 mmol/L (3.5-5.1); Sodium 142 mmol/L (136-145); Total Protein 7.6 g/dL (6.4-8.2)
[2025-03-18 12:06] LABS: Hemoglobin A1C 5.4 % (<5.7)
== END 2025-03-18 02:24 | disposition home or self-care (01) ==
LOC: LBO 02:23
PROVIDERS: PCP Student in an Organized Health Care Education/Training Program; Visit Provider Nurse Practitioner Women's Health
DX: R63.5 Abnormal weight gain (principal); Z01.419 Encounter for gynecological examination (general) (routine) without abnormal findings; Z13.1 Encounter for screening for diabetes mellitus
CPT/HCPCS: 36415; 80053; 85027; 83036; 84443

== ENCOUNTER 2025-05-12 02:39 | Outpatient (CLI) | payer MEDICARE, OTHER, SELFPAY ==
--- NOTE | 2025-05-12 15:03 | DI.MAMMO_ITS ---
Exam(s) MAMMO SCREENING EXAM: MAMMO SCREENING CLINICAL HISTORY: screening. TECHNIQUE: Bilateral full field digital CC and MLO mammographic images were obtained with 3D tomosynthesis and utilizing computer aided detection (CAD). COMPARISON: Prior mammograms were reviewed. FINDINGS: There are no new right breast findings. In the left breast on the MLO view there is a 3 x 3 millimeter nodular density located 3.5 cm in from the nipple on the MLO view. Spot compression view and ultrasound recommended. There are no malignant-appearing microcalcification groups is region or elsewhere in either breast. There is no significant architectural distortion nor skin thickening-retraction. IMPRESSION: 1. No radiographic evidence of malignancy in the right breast. 2. Asymmetric 3 x 3 mm density-possible nodule in the left breast as seen on the MLO view. Spot compression MLO view and ultrasound recommended. BI-RADS Category 0 - Incomplete: Need additional imaging evaluation Breast Density - Category B - There are scattered areas of fibroglandular density. Breast density Category C or D implies that the patient has dense breast tissue. Dense breast tissue can make it harder to find cancer on a mammogram. Dense breast tissue is also associated with an increased risk of breast cancer. This information about the result of the mammogram report was provided to the patient to raise their awareness. Use this report when you speak with the patient about their risks for breast cancer, which includes their family history. At that time, you may recommend additional screening tests (Ultrasound or MRI) as these tests may add significant information. A negative radiographic report should not delay biopsy if a dominant or clinically suspicious mass is present. Up to ten percent of cancers are not identified on mammography. A negative report may reinforce clinical impression. Adenosis and dense breasts may obscure an underlying neoplasm. False positive reports average 6 to 10%. Patient will receive a letter notifying them of these results.
== END 2025-05-12 02:59 ==
LOC: DI 02:39
PROVIDERS: PCP Student in an Organized Health Care Education/Training Program; Visit Provider Nurse Practitioner Women's Health
DX: Z12.31 Encounter for screening mammogram for malignant neoplasm of breast (principal); R92.323 Mammographic fibroglandular density, bilateral breasts
CPT/HCPCS: 77063; 77067

== ENCOUNTER 2025-05-19 01:29 | Outpatient (CLI) | payer MEDICARE, OTHER, SELFPAY ==
--- NOTE | 2025-05-19 | DI.US_ITS ---
Exam(s) MG MAMMO SCREEN CALL BACK UNI US BREAST LT LIMITED EXAM: MG MAMMO SCREEN CALL BACK UNI and U/S breast LT limited CLINICAL HISTORY: ASYMMETRIC 3X3 MM DENSITY POSSIBLE NODULE LT BREAST R92.8 ABNL MAMMO. TECHNIQUE: Craniocaudal and mediolateral oblique Full Field Digital Mammography views of the left breast with Computer Aided Diagnosis followed by Tomosynthesis and limited left breast ultrasound. COMPARISON: Comparison is made with prior examinations. FINDINGS: Mammography/Tomosynthesis: Masses/Architectural Distortion: The area of nodularity seen on the left MLO view does not persist on the additional views. No suspicious masses or areas of architectural distortion are present. Microcalcifictions: No suspicious pleomorphic-type are seen. Skin Thickening/Nipple Retraction: None. Limited left breast US: Echotexture: Normal appearance of the glandular tissue. There is a round area at the 1 o'clock position of the left breast 4 cm from the nipple. It is isoechoic to the surrounding tissue and likely reflects normal fibroglandular tissue. No abnormal blood flow, posterior acoustic enhancement or angular margins are seen. Shadowing: No suspicious foci. Cyst: None. Solid lesions: None seen. Ductal dilation: None. IMPRESSION: 1. No evidence of malignancy is noted. 2. Unless there is more urgent need, follow-up screening mammography is recommended, as per [place] [employer] guidelines. 3. The findings were discussed with the patient on the date of the examination. BI-RADS Category 1 - Negative Breast Density - Category B - There are scattered areas of fibroglandular density. Breast density Category C or D implies that the patient has dense breast tissue. Dense breast tissue can make it harder to find cancer on a mammogram. Dense breast tissue is also associated with an increased risk of breast cancer. This information about the result of the mammogram report was provided to the patient to raise their awareness. Use this report when you speak with the patient about their risks for breast cancer, which includes their family history. At that time, you may recommend additional screening tests (Ultrasound or MRI) as these tests may add significant information. A negative radiographic report should not delay biopsy if a dominant or clinically suspicious mass is present. Up to ten percent of cancers are not identified on mammography. A negative report may reinforce clinical impression. Adenosis and dense breasts may obscure an underlying neoplasm. False positive reports average 6 to 10%. Patient will receive a letter notifying them of these results.
== END 2025-05-19 01:49 ==
LOC: DI 01:30
PROVIDERS: PCP Student in an Organized Health Care Education/Training Program; Visit Provider Nurse Practitioner Women's Health
DX: Z12.31 Encounter for screening mammogram for malignant neoplasm of breast (principal); N63.21 Unspecified lump in the left breast, upper outer quadrant
CPT/HCPCS: 76642; 77063; 77067

== ENCOUNTER 2025-06-12 04:18 | Outpatient (CLI) | payer MEDICARE, OTHER, SELFPAY ==
[2025-06-12 11:07] LABS: Calculated LDL 52 mg/dL (<100); Cholesterol 127 mg/dL (<200); HDL Cholesterol 53 mg/dL (>or=50); Triglyceride 112 mg/dL (<150)
== END 2025-06-12 04:19 | disposition home or self-care (01) ==
PROVIDERS: Internal Medicine; PCP Student in an Organized Health Care Education/Training Program; Visit Provider Physician Assistant
DX: E78.01 Familial hypercholesterolemia (principal)
CPT/HCPCS: 36415; 80061; 83695

== ENCOUNTER 2025-07-29 11:41 | Outpatient (CLI) | payer MEDICARE, OTHER, SELFPAY ==
--- NOTE | 2025-07-29 11:00 | DI.RAD_ITS ---
Exam(s) XR KNEE LT 2V AP,LAT EXAM: XR KNEE LT 2V AP,LAT INDICATION: F/U LEFT [facility]. COMPARISON: CR XR KNEE LT 2V AP,LAT from 11/26/2024 CR XR KNEE RT 2V AP,LAT from 01/21/2025 TECHNIQUE: 2D digital imaging was performed. Two views. FINDINGS: There is stable alignment of the medial femoral tibial joint prosthesis. There are no abnormal surrounding lucencies. Mild degenerative changes are again noted at the patellofemoral joint. DATA REPOSITORY: RADIATION DOSE DELIVERED:
== END 2025-07-29 11:42 | disposition home or self-care (01) ==
LOC: DIORS 11:41
PROVIDERS: PCP Student in an Organized Health Care Education/Training Program; Visit Provider Student in an Organized Health Care Education/Training Program
DX: Z47.1 Aftercare following joint replacement surgery (principal); Z96.652 Presence of left artificial knee joint; M17.12 Unilateral primary osteoarthritis, left knee; M16.31 Unilateral osteoarthritis resulting from hip dysplasia, right hip; M70.51 Other bursitis of knee, right knee
CPT/HCPCS: 99213; 73560